=== PATIENT | female | born 1965 | race American Indian/Alaskan Native ===

== ENCOUNTER 2018-12-22 18:30 | Inpatient (IN) | payer OTHER ==
--- NOTE | 2018-12-22 19:30 | Event Note ---
ED Screening Note ED Screening Note: states her BP is elevated states that her medication was changed by her PCP from norvasc 5 mg once a day to metoprolol 50 mg on 12/19/18 states she has been light-headed no N/V no CP states she has a cough with clear mucus states she was given claritin by her PCP denies SOB denies any hx of asthma denies smoking This initial assessment/diagnostic orders/clinical plan/treatment(s) is/are subject to change based on patients health status, clinical progression and re- assessment by fellow clinical providers in the ED. Further treatment and workup at subsequent clinical providers discretion. Patient/guardian urged not to elope from the ED as their condition may be serious if not clinically assessed and managed. Initial orders include: CXR, labs, EKG SENT TO MAIN oxygen sat 89%, very poor air movement
[2018-12-22] MEDS ORDERED: ATROVENT IH ONE (19:35)
[2018-12-22] MEDS ORDERED: PROVENTIL IH ONE (19:35)
[2018-12-22 20:03] LABS: Basophils % (Auto) 0.6 % (0.0-1.8); Eosinophils % (Auto) 0.9 % (0.0-4.3); Hematocrit 44.9 % (30.3-42.9); Hemoglobin 14.9 gm/dl (10.1-14.3); Lymphocytes # (Auto) 0.9 K/mm3 (1.2-5.4); Lymphocytes % (Auto) 17.5 % (13.4-35.0); Mean Corpuscular HGB Conc 33 % (30-34); Mean Corpuscular Volume 89 fl (79-97); Monocytes # (Auto) 0.6 K/mm3 (0.0-0.8); Platelet Count 268 K/mm3 (140-440); Red Blood Count 5.06 M/mm3 (3.65-5.03); Red Cell Distribution Width 14.3 % (13.2-15.2)
[2018-12-22 20:09] LABS: INR 1.05 (0.87-1.13); Partial Thromboplastin Time 27.6 Sec. (24.2-36.6)
[2018-12-22 20:23] LABS: Alanine Aminotransferase 60 units/L (7-56); Albumin 3.4 g/dL (3.9-5); BUN/Creatinine Ratio 12; Blood Urea Nitrogen 6 mg/dL (7-17); Hemolysis Index 9
--- NOTE | 2018-12-22 20:39 | Emergency Department Report ---
ED General Adult HPI - General Chief complaint: Upper Respiratory Infection Stated complaint: DRY COUGH Time Seen by Provider: 12/22/18 19:26 Source: patient Mode of arrival: Ambulatory Limitations: No Limitations - History of Present Illness Initial comments: 53-year-old female with history of hypertension presents to ED with complaint of productive cough with yellow sputum, elevated blood pressure, feeling dizzy. Patient states symptoms began when week ago, when she noticed that her blood pressure was elevated despite being compliant with her Norvasc and HCTZ. Patient visited her PCP, and was switched from Norvasc to metoprolol plus her HCTZ. Patient states blood pressure remained elevated, so she decided to come to the emergency room. She states she still has productive cough, was diagnosed with pneumonia 1 year ago. Patient denies fever, chest pain, shortness of breath. Denies leg pain or swelling. -: week(s) (1) Severity scale (0 -10): 2 Consistency: constant Improves with: none Worsens with: none Associated Symptoms: cough, weakness. denies: chest pain, fever/chills, headaches, nausea/vomiting, shortness of breath - Related Data Home Medications Medication Instructions Recorded Confirmed Last Taken Metoprolol [Lopressor TAB] 50 mg PO BID 12/22/18 12/22/18 Unknown hydroCHLOROthiazide [HCTZ] 25 mg PO DAILY 12/22/18 12/22/18 Unknown Allergies Allergy/AdvReac Type Severity Reaction Status Date / Time acetaminophen [From Vicodin] AdvReac Nausea Verified 12/22/18 18:31 hydrocodone [From Vicodin] AdvReac Nausea Verified 12/22/18 18:31 ED Review of Systems ROS: Stated complaint: DRY COUGH Other details as noted in HPI Comment: All other systems reviewed and negative Constitutional: denies: chills, fever Respiratory: cough. denies: shortness of breath Cardiovascular: denies: chest pain Gastrointestinal: denies: nausea, vomiting Musculoskeletal: other (denies leg pain or swelling) ED Past Medical Hx - Past Medical History Hx Hypertension: Yes - Surgical History Past Surgical History?: No - Social History Smoking Status: Never Smoker Substance Use Type: None - Medications Home Medications: Home Medications Medication Instructions Recorded Confirmed Last Taken Type Metoprolol [Lopressor TAB] 50 mg PO BID 12/22/18 12/22/18 Unknown History hydroCHLOROthiazide [HCTZ] 25 mg PO DAILY 12/22/18 12/22/18 Unknown History ED Physical Exam - General Limitations: No Limitations General appearance: alert, in no apparent distress, obese - Head Head exam: Present: atraumatic, normocephalic - Eye Eye exam: Present: normal appearance - ENT ENT exam: Present: mucous membranes moist - Neck Neck exam: Present: normal inspection - Respiratory Respiratory exam: Present: normal lung sounds bilaterally. Absent: respiratory distress - Cardiovascular Cardiovascular Exam: Present: regular rate, normal rhythm - GI/Abdominal GI/Abdominal exam: Present: soft. Absent: distended, tenderness - Extremities Exam Extremities exam: Absent: pedal edema, calf tenderness - Neurological Exam Neurological exam: Present: alert, oriented X3 - Psychiatric Psychiatric exam: Present: normal affect, normal mood - Skin Skin exam: Present: warm, dry, intact, normal color ED Course Vital Signs 12/22/18 12/22/18 12/22/18 19:27 20:35 20:50 Temperature 98.5 F Pulse Rate 97 H Pulse Rate [ 88 90 Bilateral] Respiratory 20 Rate Respiratory 18 18 Rate [Bilateral ] Blood Pressure 174/110 Blood Pressure 174/110 [Right] O2 Sat by Pulse 86 Oximetry 12/22/18 22:05 Temperature Pulse Rate 94 H Pulse Rate [ Bilateral] Respiratory Rate Respiratory Rate [Bilateral ] Blood Pressure 172/112 Blood Pressure [Right] O2 Sat by Pulse Oximetry ED Medical Decision Making - Lab Data Result diagrams: 12/22/18 19:45 12/22/18 19:45 - EKG Data -: EKG Interpreted by Ga EKG shows normal: sinus rhythm, axis, intervals, QRS complexes, ST-T waves Rate: normal - EKG Data Interpretation: no acute changes - Radiology Data Radiology results: report reviewed, image reviewed - Medical Decision Making 53 yo F w/ HTN presents with elevated BP and hypoxia, room air sats 86%. Reports productive cough. Currently afebrile, WBCs normal. EKG and troponin normal. CXR shows bilateral interstitial infiltrates, probable edema. BNP normal, however, lasix given due to CXR findings. Pt also covered with antibiotics for possible infectious etiology. Albuterol, atrovent nebs given. Will admit to hospitalist for further evaluation. - Differential Diagnosis pneumonia, CHF, PE Critical Care Time: Yes Critical care time in (mins) excluding proc time.: 35 Critical care attestation.: If time is entered above; I have spent that time in minutes in the direct care of this critically ill patient, excluding procedure time. Critical Care Time: 35 minutes ED Disposition Clinical Impression: Hypoxia, Pulmonary edema, Hyponatremia Disposition: OP ADMIT IP TO THIS HOSP Is pt being admited?: Yes Condition: Stable Time of Disposition: 21:30
--- NOTE | 2018-12-22 21:04 | XRay Report ---
CHEST 2 VIEWS INDICATION / CLINICAL INFORMATION: Chest Pain. COMPARISON: None available. FINDINGS: SUPPORT DEVICES: None. HEART / MEDIASTINUM: No significant abnormality. LUNGS / PLEURA: Prominent interstitial edema type change noted bilaterally. No significant pleural ef fusion. Low lung volumes. Signer Name: Jase Lance MD Signed: 12/22/2018 8:59 PM Workstation Name: [id number]
[2018-12-22] MEDS ORDERED: LASIX IV ONE (21:31)
[2018-12-22] MEDS ORDERED: LEVAQUIN PO ONE (21:37)
[2018-12-22] MEDS ORDERED: APRESOLINE IV ONE (21:39)
--- NOTE | 2018-12-22 22:27 | History and Physical Report ---
History of Present Illness Chief complaint: I cant breathe, My blood pressure is high History of present illness: 53 YO Female with HTN, Obesity Hypoventilation Syndrome presents to ED for evaluation. Pt states that she has experienced shortness of breath, productive cough of yellow sputum over the past 1 week with persistent symptoms over the same time frame. Pt also reports elevated blood pressure. Pt seen and evaluated by her PCP on Wednesday and treated with outpatient therapy but has not experienced improvement in symptoms. Pt transported to [facility] via private vehicle. Pt seen and evaluated in ED and found to have Bronchitis, as well as Acute Respiratory Failure with pulse oximetry of 89% on room air. Pt also faoud to have elevated Gamma Gap suspicious for Multiple Myeloma. Pt treated with supportive care, rivera pplemental oxygen and admitted to medical floor. Pt denies fever, chills, palpitations, CP, Syncope, hemoptysis, unilateral leg swelling, calf pain, prolonged travel/immoblity, individual/family history of DVT/PE/Bleeding/Blood Clotting Disorders. No prior admission for review. All listed medication reconciled at time of admission. Past History Past Medical History: hypertension, other (Obesity Hypoventilation) Past Surgical History: No surgical history, Other (reviewed) Social history: single. denies: smoking, alcohol abuse, prescription drug abuse Family history: hypertension Medications and Allergies Allergies Allergy/AdvReac Type Severity Reaction Status Date / Time acetaminophen [From Vicodin] AdvReac Nausea Verified 12/22/18 18:31 hydrocodone [From Vicodin] AdvReac Nausea Verified 12/22/18 18:31 Home Medications Medication Instructions Recorded Confirmed Last Taken Type Metoprolol [Lopressor TAB] 50 mg PO BID 12/22/18 12/22/18 Unknown History hydroCHLOROthiazide [HCTZ] 25 mg PO DAILY 12/22/18 12/22/18 Unknown History Review of Systems Constitutional: no weight loss, no weight gain, no fever, no chills Ears, nose, mouth and throat: no ear pain, no decreased hearing, no nose pain, no nasal congestion, no nasal discharge, no sinus pressure Breasts: no change in shape, no swelling, no mass Cardiovascular: no chest pain, no orthopnea, no palpitations, no syncope Respiratory: cough, cough with sputum, excessive sputum, shortness of breath Gastrointestinal: no abdominal pain, no nausea, no vomiting, no diarrhea, no constipation, no change in bowel habits Genitourinary Female: no pelvic pain, no flank pain, no menorrhagia, no dysuria, no urinary frequency Rectal: no pain, no incontinence, no bleeding Musculoskeletal: no neck stiffness, no neck pain, no shooting arm pain, no arm numbness/tingling, no low back pain Integumentary: no rash, no pruritis, no redness, no sores, no wounds Neurological: no transient paralysis, no paralysis, no weakness, no parathesias, no numbness, no tingling Psychiatric: no anxiety, no memory loss, no change in sleep habits, no sleep disturbances, no insomnia, no hypersomnia, no change in appetite Endocrine: no cold intolerance, no heat intolerance, no polyphagia, no excessive thirst, no polydipsia, no polyuria Hematologic/Lymphatic: no easy bruising, no easy bleeding, no lymphadenopathy, no lymphedema Allergic/Immunologic: no urticaria, no allergic rhinitis, no wheezing, no persistent infections, no anaphylaxis Exam - Constitutional Vitals: Temp Pulse Resp BP Pulse Ox 98.5 F 94 H 18 172/112 86 12/22/18 19:27 12/22/18 22:05 12/22/18 20:50 12/22/18 22:05 12/22/18 19:27 General appearance: Present: mild distress, obese - EENT Eyes: Present: PERRL ENT: hearing intact, clear oral mucosa - Neck Neck: Present: supple, normal ROM - Respiratory Respiratory effort: normal Respiratory: bilateral: diminished, rhonchi - Cardiovascular Heart Sounds: Present: S1 & S2. Absent: rub, click - Extremities Extremities: pulses symmetrical, No edema Peripheral Pulses: within normal limits - Abdominal General gastrointestinal: Present: soft, non-tender, non-distended, normal bowel sounds Female genitourinary: Present: normal - Integumentary Integumentary: Present: clear, warm, dry - Musculoskeletal Musculoskeletal: gait normal, strength equal bilaterally - Psychiatric Psychiatric: appropriate mood/affect, intact judgment & insight - Neurologic Neurologic: CNII-XII intact, moves all extremities Results - Labs CBC & Chem 7: 12/22/18 19:45 12/22/18 19:45 Labs: Abnormal lab results 12/22/18 12/22/18 Range/Units 19:45 19:45 RBC 5.06 H (3.65-5.03) M/mm3 Hgb 14.9 H (10.1-14.3) gm/dl Hct 44.9 H (30.3-42.9) % [place] % (Auto) 11.0 H (0.0-7.3) % Lymph # 0.9 L (1.2-5.4) K/mm3 Sodium 126 L (137-145) mmol/L Chloride 80.2 L (98-107) mmol/L Carbon Dioxide 38 H (22-30) mmol/L BUN 6 L (7-17) mg/dL Creatinine 0.5 L (0.7-1.2) mg/dL Glucose 110 H (65-100) mg/dL ALT 60 H (7-56) units/L Total Protein 8.3 H (6.3-8.2) g/dL Albumin 3.4 L (3.9-5) g/dL Assessment and Plan - Patient Problems (1) Bronchitis Current Visit: Yes Status: Acute Plan to address problem: IV antibiotic therapy, IV steroid therapy, supplemental oxygen, chest x ray. (2) Respiratory failure Current Visit: Yes Status: Acute Qualifiers: Chronicity: acute Respiratory failure complication: hypoxia Qualified Code(s): J96.01 - Acute respiratory failure with hypoxia Plan to address problem: Supplemental oxygen, nebulizer therapy, pulse oximetry, NIPPV as clinically indicated, D dimer, (3) Hyponatremia syndrome Current Visit: Yes Status: Acute Plan to address problem: IVF resuscitation therapy, repeat bmp in am. (4) Multiple myeloma Current Visit: Yes Status: Suspected Plan to address problem: [place], LDH, B2 Microglobulin, SPEP, UPEP, (5) Obesity hypoventilation syndrome Current Visit: Yes Status: Acute Plan to address problem: Supplemental oxygen, nebulizer therapy, NIPPV as clinically indicated, outpatient sleep study, balanced diet, increased physical activity at discharge, +15 min dietary counseling. (6) DVT prophylaxis Current Visit: Yes Status: Acute Plan to address problem: SCD to BLE while in bed, Pt ambulatory
[2018-12-22] MEDS ORDERED: ZOFRAN IV PRN (22:33)
[2018-12-22] MEDS ORDERED: TYLENOL PO PRN (22:33)
[2018-12-22] MEDS ORDERED: SODIUM CHLORIDE FLUSH SYRINGE 10 ML IV PRN (22:33)
[2018-12-22] MEDS: SOLU-Medrol IV SCH (23:26)
[2018-12-23 05:34] LABS: Hematocrit 47.2 % (30.3-42.9); Hemoglobin 15.5 gm/dl (10.1-14.3); Mean Corpuscular HGB Conc 33 % (30-34); Mean Corpuscular Volume 90 fl (79-97); Platelet Count 289 K/mm3 (140-440); Red Blood Count 5.27 M/mm3 (3.65-5.03)
[2018-12-23 05:58] LABS: BUN/Creatinine Ratio 12; Blood Urea Nitrogen 7 mg/dL (7-17); Calcium 9.1 mg/dL (8.4-10.2); Hemolysis Index 4
[2018-12-23 09:17] LABS: Band Neutrophils # (Manual) 0.1 K/mm3; Basophils % (Manual) 0 % (0.0-1.8); Eosinophils % (Manual) 0 % (0.0-4.3); Total Cells Counted 100
[2018-12-23 09:18] LABS: Large Platelets 1+; Platelet Estimate Consistent w Auto; RBC Morphology Normal
[2018-12-23] MEDS: PROVENTIL IH PRN (09:33)
[2018-12-23] MEDS: LOPRESSOR PO SCH ×2 (10:42→22:49)
[2018-12-23] MEDS: HCTZ PO SCH (10:42)
[2018-12-23] MEDS: SOLU-Medrol IV SCH ×2 (10:43→22:46)
[2018-12-23] MEDS: SODIUM CHLORIDE FLUSH SYRINGE 10 ML IV SCH ×2 (10:43→22:49)
[2018-12-23] MEDS: ZITHROMAX 500 MG in NACL 0.9% 250ML 250 ML IV SCH (11:32)
--- NOTE | 2018-12-23 14:13 | Progress Note ---
Assessment and Plan Assessment and plan: 53 YO Female with HTN, Obesity Hypoventilation Syndrome presents to ED for evaluation. Pt states that she has experienced shortness of breath, productive cough of yellow sputum over the past 1 week with persistent symptoms over the same time frame. Pt also reports elevated blood pressure. Pt seen and evaluated by her PCP on Wednesday and treated with outpatient therapy but has not experienced improvement in symptoms. Pt transported to [facility] via private vehicle. Pt seen and evaluated in ED and found to have Bronchitis, as well as Acute Respiratory Failure with pulse oximetry of 89% on room air. Pt also faoud to have elevated Gamma Gap suspicious for Multiple Myeloma. Pt treated with supportive care, rivera pplemental oxygen and admitted to medical floor. Pt denies fever, chills, palpitations, CP, Syncope, hemoptysis, unilateral leg swelling, calf pain, prolonged travel/immoblity, individual/family history of DVT/PE/Bleeding/Blood Clotting Disorders. No prior admission for review. (1) Bronchitis Current Visit: Yes Status: Acute Plan to address problem: IV antibiotic therapy, IV steroid therapy, supplemental oxygen, chest x ray. Check ABG (2) Respiratory failure/Pulmonary edema Current Visit: Yes Status: Acute Qualifiers: Chronicity: acute Respiratory failure complication: hypoxia Qualified Code(s): J96.01 - Acute respiratory failure with hypoxia Plan to address problem: Supplemental oxygen, nebulizer therapy, pulse oximetry, NIPPV as clinically indicated, D dimer, Pulmonary consult wean 02 Give a dose of Lasix (3) Hyponatremia syndrome Current Visit: Yes Status: Acute Plan to address problem: IVF resuscitation therapy, repeat bmp in am. (4) Multiple myeloma Current Visit: Yes Status: Suspected Plan to address problem: [place], LDH, B2 Microglobulin, SPEP, UPEP, (5) Obesity hypoventilation syndrome Current Visit: Yes Status: Acute Plan to address problem: Supplemental oxygen, nebulizer therapy, NIPPV as clinically indicated, outpatient sleep study, balanced diet, increased physical activity at discharge, +15 min dietary counseling. Outpatient ARRON study recommended (6)? ELEVATED LDH, LOW NA, ELEVATED GAMMA Further outpatient work up recommended DVT prophylaxis Current Visit: Yes Status: Acute Plan to address problem: SCD to BLE while in bed, Pt ambulatory History Interval history: Patient seen and examined, reports shortness of breath, cough, No prior hx of smoking. Hospitalist Physical - Physical exam Narrative exam: VITAL SIGNS: Reviewed. GENERAL: The patient appeared normally developed, Morbidly obese Vital signs as documented. HEAD: No signs of head trauma. EYES: Pupils are equal. Extraocular motions intact. EARS: Hearing grossly intact. MOUTH: Oropharynx is normal. NECK: No adenopathy, no JVD. CHEST: Chest with diminished breath sounds bilaterally. No wheezes, rales, or rhonchi. CARDIAC: Regular rate and rhythm. S1 and S2, without murmurs, gallops, or rub s. VASCULAR: No Edema. Peripheral pulses normal and equal in all extremities. ABDOMEN: Soft, non tender and non distended. No rebound or guarding, and no masses palpated. Bowel Sounds normal. MUSCULOSKELETAL: Good range of motion of all major joints. Extremities without clubbing, cyanosis or edema. NEUROLOGIC EXAM: Alert and oriented x 3 No focal sensory or strength deficits. Speech normal. Follows commands. PSYCHIATRIC: Mood normal. SKIN: detial exam as documented in skin assessment - Constitutional Vitals: Temp Pulse Resp BP Pulse Ox 97.8 F 83 24 135/84 96 12/23/18 11:46 12/23/18 11:46 12/23/18 11:46 12/23/18 11:46 12/23/18 11:46 General appearance: Present: mild distress, obese Results - Labs CBC & Chem 7: 12/24/18 04:01 12/24/18 04:01 Labs: Laboratory Last Values WBC 7.1 K/mm3 (4.5-11.0) 12/23/18 05:00 RBC 5.27 M/mm3 (3.65-5.03) H 12/23/18 05:00 Hgb 15.5 gm/dl (10.1-14.3) H 12/23/18 05:00 Hct 47.2 % (30.3-42.9) H 12/23/18 05:00 MCV 90 fl (79-97) 12/23/18 05:00 MCH 30 pg (28-32) 12/23/18 05:00 MCHC 33 % (30-34) 12/23/18 05:00 RDW 14.0 % (13.2-15.2) 12/23/18 05:00 Plt Count 289 K/mm3 (140-440) 12/23/18 05:00 Lymph % (Auto) 17.5 % (13.4-35.0) 12/22/18 19:45 [place] % (Auto) 11.0 % (0.0-7.3) H 12/22/18 19:45 Eos % (Auto) 0.9 % (0.0-4.3) 12/22/18 19:45 Baso % (Auto) 0.6 % (0.0-1.8) 12/22/18 19:45 Lymph # 0.9 K/mm3 (1.2-5.4) L 12/22/18 19:45 [place] # 0.6 K/mm3 (0.0-0.8) 12/22/18 19:45 Eos # 0.0 K/mm3 (0.0-0.4) 12/22/18 19:45 Baso # 0.0 K/mm3 (0.0-0.1) 12/22/18 19:45 Add Manual Diff Complete 12/23/18 05:00 Total Counted 100 12/23/18 05:00 Seg Neutrophils % Radio Television Announcer 12/23/18 05:00 Seg Neuts % (Manual) 94.0 % (40.0-70.0) H 12/23/18 05:00 2.0 % 12/23/18 05:00 3.0 % (13.4-35.0) L 12/23/18 05:00 Reactive Lymphs % (Man) 0 % 12/23/18 05:00 1.0 % (0.0-7.3) 12/23/18 05:00 0 % (0.0-4.3) 12/23/18 05:00 0 % (0.0-1.8) 12/23/18 05:00 0 % 12/23/18 05:00 0 % 12/23/18 05:00 0 % 12/23/18 05:00 0 % 12/23/18 05:00 Nucleated RBC % Not Reportable 12/23/18 05:00 Seg Neutrophils # 3.6 K/mm3 (1.8-7.7) 12/22/18 19:45 Seg Neutrophils # Man 6.7 K/mm3 (1.8-7.7) 12/23/18 05:00 Band Neutrophils # 0.1 K/mm3 12/23/18 05:00 0.2 K/mm3 (1.2-5.4) L 12/23/18 05:00 Abs React Lymphs (Man) 0.0 K/mm3 12/23/18 05:00 0.1 K/mm3 (0.0-0.8) 12/23/18 05:00 0.0 K/mm3 (0.0-0.4) 12/23/18 05:00 0.0 K/mm3 (0.0-0.1) 12/23/18 05:00 0.0 K/mm3 12/23/18 05:00 0.0 K/mm3 12/23/18 05:00 0.0 K/mm3 12/23/18 05:00 Blast Cells # 0.0 K/mm3 12/23/18 05:00 WBC Morphology Not Reportable 12/23/18 05:00 Hypersegmented Neuts Not Reportable 12/23/18 05:00 Hyposegmented Neuts Not Reportable 12/23/18 05:00 Hypogranular Neuts Not Reportable 12/23/18 05:00 Not Reportable 12/23/18 05:00 Not Reportable 12/23/18 05:00 Not Reportable 12/23/18 05:00 Not Reportable 12/23/18 05:00 Not Reportable 12/23/18 05:00 Not Reportable 12/23/18 05:00 Consistent w auto 12/23/18 05:00 Not Reportable 12/23/18 05:00 Plt Clumps, EDTA Not Reportable 12/23/18 05:00 1+ 12/23/18 05:00 Not Reportable 12/23/18 05:00 Not Reportable 12/23/18 05:00 Plt Morphology Comment Not Reportable 12/23/18 05:00 RBC Morphology Normal 12/23/18 05:00 Dimorphic RBCs Not Reportable 12/23/18 05:00 Not Reportable 12/23/18 05:00 Not Reportable 12/23/18 05:00 Not Reportable 12/23/18 05:00 Not Reportable 12/23/18 05:00 Not Reportable 12/23/18 05:00 Not Reportable 12/23/18 05:00 Not Reportable 12/23/18 05:00 Not Reportable 12/23/18 05:00 Not Reportable 12/23/18 05:00 Not Reportable 12/23/18 05:00 Not Reportable 12/23/18 05:00 Not Reportable 12/23/18 05:00 Not Reportable 12/23/18 05:00 Not Reportable 12/23/18 05:00 Not Reportable 12/23/18 05:00 Not Reportable 12/23/18 05:00 Not Reportable 12/23/18 05:00 Not Reportable 12/23/18 05:00 Not Reportable 12/23/18 05:00 Acanthocytes (Spur) Not Reportable 12/23/18 05:00 Rouleaux Not Reportable 12/23/18 05:00 Not Reportable 12/23/18 05:00 Not Reportable 12/23/18 05:00 Not Reportable 12/23/18 05:00 Not Reportable 12/23/18 05:00 Hem Pathologist Commnt No 12/23/18 05:00 PT 13.4 Sec. (12.2-14.9) 12/22/18 19:45 INR 1.05 (0.87-1.13) 12/22/18 19:45 APTT 27.6 Sec. (24.2-36.6) 12/22/18 19:45 177.85 ng/mlDDU (0-234) 12/22/18 19:45 Sodium 129 mmol/L (137-145) L 12/23/18 05:00 Potassium 3.6 mmol/L (3.6-5.0) 12/23/18 05:00 Chloride 80.8 mmol/L (98-107) L 12/23/18 05:00 Carbon Dioxide 37 mmol/L (22-30) H 12/23/18 05:00 15 mmol/L 12/23/18 05:00 BUN 7 mg/dL (7-17) 12/23/18 05:00 0.6 mg/dL (0.7-1.2) L 12/23/18 05:00 Estimated GFR > 60 ml/min 12/23/18 05:00 12 % 12/23/18 05:00 Glucose 148 mg/dL (65-100) H 12/23/18 05:00 Calcium 9.1 mg/dL (8.4-10.2) 12/23/18 05:00 1.00 mg/dL (0.1-1.2) 12/22/18 19:45 AST 32 units/L (5-40) 12/22/18 19:45 ALT 60 units/L (7-56) H 12/22/18 19:45 91 units/L (35-129) 12/22/18 19:45 230 units/L (91-180) H 12/22/18 22:47 < 0.010 ng/mL (0.00-0.029) 12/22/18 22:27 NT-Pro-B Natriuret Pep 164.4 pg/mL (0-900) 12/22/18 19:45 8.3 g/dL (6.3-8.2) H 12/22/18 19:45 3.4 g/dL (3.9-5) L 12/22/18 19:45 0.7 % 12/22/18 19:45 Active Medications - Current Medications Current Medications: Generic Name Dose Route Start Last Admin Trade Name Freq PRN Reason Stop Dose Admin Acetaminophen 650 mg 12/22/18 22:33 Tylenol PO Q4H PRN Pain MILD(1-3)/Fever >100.5/[place] Albuterol 2.5 mg 12/22/18 22:33 12/23/18 09:33 Proventil IH 2.5 mg Q4HRT PRN Administration Shortness Of Breath Hydrochlorothiazide 25 mg 12/23/18 10:00 12/23/18 10:42 Hctz PO 25 mg DAILY MAURICIO Administration Azithromycin 500 mg/ Sodium 250 mls @ 250 mls/hr 12/23/18 10:00 12/23/18 11:32 Chloride IV 250 mls/hr Q24HR MAURICIO Administration Protocol Methylprednisolone Sodium Succinate 40 mg 12/22/18 22:35 12/23/18 10:43 Solu-Medrol IV 40 mg Q12HR MAURICIO Administration Metoprolol Tartrate 50 mg 12/23/18 10:00 12/23/18 10:42 Lopressor PO 50 mg BID MAURICIO Administration Ondansetron HCl 4 mg 12/22/18 22:33 Zofran IV Q8H PRN Nausea And Vomiting Sodium Chloride 10 ml 12/23/18 10:00 12/23/18 10:43 Sodium Chloride Flush Syringe 10 Ml IV 10 ml BID MAURICIO Administration Sodium Chloride 10 ml 12/22/18 22:33 Sodium Chloride Flush Syringe 10 Ml IV PRN PRN LINE FLUSH
[2018-12-23] MEDS ORDERED: LASIX IV ONE (15:00)
[2018-12-23] MEDS ORDERED: ATIVAN IV PRN (17:43)
--- NOTE | 2018-12-23 18:15 | Event Note ---
Date: 12/23/18 Pt ABG results reviewed. Obesity Hypoventilation with CO2 retention.. Will continue NIPPV. Pt stable, AOx3, without neurologic changes. Discussed ABG with Respiratory therapy as well as nurse. Discussed care plan with staff nurse.
[2018-12-24 04:35] LABS: Hematocrit 44.8 % (30.3-42.9); Hemoglobin 14.6 gm/dl (10.1-14.3); Mean Corpuscular HGB Conc 33 % (30-34); Mean Corpuscular Volume 90 fl (79-97); Platelet Count 275 K/mm3 (140-440); Red Blood Count 4.98 M/mm3 (3.65-5.03); Red Cell Distribution Width 14.2 % (13.2-15.2)
[2018-12-24 04:50] LABS: BUN/Creatinine Ratio 28; Blood Urea Nitrogen 17 mg/dL (7-17); Hemolysis Index 5
[2018-12-24] MEDS: PROVENTIL IH PRN (09:45)
[2018-12-24] MEDS: ZITHROMAX 500 MG in NACL 0.9% 250ML 250 ML IV SCH (10:00)
[2018-12-24] MEDS: LOPRESSOR PO SCH ×2 (11:08→21:05)
[2018-12-24] MEDS: SOLU-Medrol IV SCH ×2 (11:09→21:06)
[2018-12-24] MEDS: HCTZ PO SCH (11:09)
[2018-12-24] MEDS: SODIUM CHLORIDE FLUSH SYRINGE 10 ML IV SCH ×2 (11:09→21:06)
--- NOTE | 2018-12-24 13:03 | Progress Note ---
Assessment and Plan Assessment and plan: 53 YO Female with HTN, Obesity Hypoventilation Syndrome presents to ED for evaluation. Pt states that she has experienced shortness of breath, productive cough of yellow sputum over the past 1 week with persistent symptoms over the same time frame. Pt also reports elevated blood pressure. Pt seen and evaluated by her PCP on Wednesday and treated with outpatient therapy but has not experienced improvement in symptoms. Pt transported to [facility] via private vehicle. Pt seen and evaluated in ED and found to have Bronchitis, as well as Acute Respiratory Failure with pulse oximetry of 89% on room air. Pt also faoud to have elevated Gamma Gap suspicious for Multiple Myeloma. Pt treated with supportive care, rivera pplemental oxygen and admitted to medical floor. Pt denies fever, chills, palpitations, CP, Syncope, hemoptysis, unilateral leg swelling, calf pain, prolonged travel/immoblity, individual/family history of DVT/PE/Bleeding/Blood Clotting Disorders. No prior admission for review. (1) Bronchitis Current Visit: Yes Status: Acute Plan to address problem: IV antibiotic therapy, IV steroid therapy, supplemental oxygen, chest x ray. Check ABG (2) Respiratory failure/Pulmonary edema/Hypercapenia Current Visit: Yes Status: Acute Qualifiers: Chronicity: acute Respiratory failure complication: hypoxia Qualified Code(s): J96.01 - Acute respiratory failure with hypoxia Plan to address problem: Supplemental oxygen, nebulizer therapy, pulse oximetry, NIPPV as clinically indicated, D dimer, Pulmonary consult ABG noted, patient improved with BIPAP wean 02 Given a dose of Lasix yesterday (3) Hyponatremia syndrome Current Visit: Yes Status: Acute Plan to address problem: Improving some IVF resuscitation therapy, repeat bmp in am. (4) Multiple myeloma Current Visit: Yes Status: Suspected Plan to address problem: [place], LDH, B2 Microglobulin, SPEP, UPEP, (5) Obesity hypoventilation syndrome Current Visit: Yes Status: Acute Plan to address problem: Supplemental oxygen, nebulizer therapy, NIPPV as clinically indicated, outpatient sleep study, balanced diet, increased physical activity at discharge, +15 min dietary counseling. Outpatient ARRON study recommended (6)? ELEVATED LDH, LOW NA, ELEVATED GAMMA Further outpatient work up recommended DVT prophylaxis Current Visit: Yes Status: Acute Plan to address problem: SCD to BLE while in bed, Pt ambulatory History Interval history: Patient seen and examined, reports shortness of breath, cough. REPORTS IMPROVEMENT Hospitalist Physical - Physical exam Narrative exam: VITAL SIGNS: Reviewed. GENERAL: The patient appeared normally developed, Morbidly obese Vital signs as documented. HEAD: No signs of head trauma. EYES: Pupils are equal. Extraocular motions intact. EARS: Hearing grossly intact. MOUTH: Oropharynx is normal. NECK: No adenopathy, no JVD. CHEST: Chest with diminished breath sounds bilaterally. No wheezes, rales, or rhonchi. CARDIAC: Regular rate and rhythm. S1 and S2, without murmurs, gallops, or rubs. VASCULAR: No Edema. Peripheral pulses normal and equal in all extremities. ABDOMEN: Soft, non tender and non distended. No rebound or guarding, and no masses palpated. Bowel Sounds normal. MUSCULOSKELETAL: Good range of motion of all major joints. Extremities without clubbing, cyanosis or edema. NEUROLOGIC EXAM: Alert and oriented x 3 No focal sensory or strength deficits. Speech normal. Follows commands. PSYCHIATRIC: Mood normal. SKIN: detial exam as documented in skin assessment - Constitutional Vitals: Temp Pulse Resp BP Pulse Ox 97.7 F 90 20 131/79 97 12/24/18 06:27 12/24/18 11:08 12/24/18 09:55 12/24/18 11:08 12/24/18 09:51 General appearance: Present: mild distress, obese Results - Labs CBC & Chem 7: 12/24/18 04:01 12/24/18 04:01 Labs: Laboratory Last Values WBC 5.8 K/mm3 (4.5-11.0) 12/24/18 04:01 RBC 4.98 M/mm3 (3.65-5.03) 12/24/18 04:01 Hgb 14.6 gm/dl (10.1-14.3) H 12/24/18 04:01 Hct 44.8 % (30.3-42.9) H 12/24/18 04:01 MCV 90 fl (79-97) 12/24/18 04:01 MCH 29 pg (28-32) 12/24/18 04:01 MCHC 33 % (30-34) 12/24/18 04:01 RDW 14.2 % (13.2-15.2) 12/24/18 04:01 Plt Count 275 K/mm3 (140-440) 12/24/18 04:01 Lymph % (Auto) 17.5 % (13.4-35.0) 12/22/18 19:45 [place] % (Auto) 11.0 % (0.0-7.3) H 12/22/18 19:45 Eos % (Auto) 0.9 % (0.0-4.3) 12/22/18 19:45 Baso % (Auto) 0.6 % (0.0-1.8) 12/22/18 19:45 Lymph # 0.9 K/mm3 (1.2-5.4) L 12/22/18 19:45 [place] # 0.6 K/mm3 (0.0-0.8) 12/22/18 19:45 Eos # 0.0 K/mm3 (0.0-0.4) 12/22/18 19:45 Baso # 0.0 K/mm3 (0.0-0.1) 12/22/18 19:45 Add Manual Diff Complete 12/23/18 05:00 Total Counted 100 12/23/18 05:00 Seg Neutrophils % Outside Machinist 12/23/18 05:00 Seg Neuts % (Manual) 94.0 % (40.0-70.0) H 12/23/18 05:00 2.0 % 12/23/18 05:00 3.0 % (13.4-35.0) L 12/23/18 05:00 Reactive Lymphs % (Man) 0 % 12/23/18 05:00 1.0 % (0.0-7.3) 12/23/18 05:00 0 % (0.0-4.3) 12/23/18 05:00 0 % (0.0-1.8) 12/23/18 05:00 0 % 12/23/18 05:00 0 % 12/23/18 05:00 0 % 12/23/18 05:00 0 % 12/23/18 05:00 Nucleated RBC % Not Reportable 12/23/18 05:00 Seg Neutrophils # 3.6 K/mm3 (1.8-7.7) 12/22/18 19:45 Seg Neutrophils # Man 6.7 K/mm3 (1.8-7.7) 12/23/18 05:00 Band Neutrophils # 0.1 K/mm3 12/23/18 05:00 0.2 K/mm3 (1.2-5.4) L 12/23/18 05:00 Abs React Lymphs (Man) 0.0 K/mm3 12/23/18 05:00 0.1 K/mm3 (0.0-0.8) 12/23/18 05:00 0.0 K/mm3 (0.0-0.4) 12/23/18 05:00 0.0 K/mm3 (0.0-0.1) 12/23/18 05:00 0.0 K/mm3 12/23/18 05:00 0.0 K/mm3 12/23/18 05:00 0.0 K/mm3 12/23/18 05:00 Blast Cells # 0.0 K/mm3 12/23/18 05:00 WBC Morphology Not Reportable 12/23/18 05:00 Hypersegmented Neuts Not Reportable 12/23/18 05:00 Hyposegmented Neuts Not Reportable 12/23/18 05:00 Hypogranular Neuts Not Reportable 12/23/18 05:00 Not Reportable 12/23/18 05:00 Not Reportable 12/23/18 05:00 Not Reportable 12/23/18 05:00 Not Reportable 12/23/18 05:00 Not Reportable 12/23/18 05:00 Not Reportable 12/23/18 05:00 Consistent w auto 12/23/18 05:00 Not Reportable 12/23/18 05:00 Plt Clumps, EDTA Not Reportable 12/23/18 05:00 1+ 12/23/18 05:00 Not Reportable 12/23/18 05:00 Not Reportable 12/23/18 05:00 Plt Morphology Comment Not Reportable 12/23/18 05:00 RBC Morphology Normal 12/23/18 05:00 Dimorphic RBCs Not Reportable 12/23/18 05:00 Not Reportable 12/23/18 05:00 Not Reportable 12/23/18 05:00 Not Reportable 12/23/18 05:00 Not Reportable 12/23/18 05:00 Not Reportable 12/23/18 05:00 Not Reportable 12/23/18 05:00 Not Reportable 12/23/18 05:00 Not Reportable 12/23/18 05:00 Not Reportable 12/23/18 05:00 Not Reportable 12/23/18 05:00 Not Reportable 12/23/18 05:00 Not Reportable 12/23/18 05:00 Not Reportable 12/23/18 05:00 Not Reportable 12/23/18 05:00 Not Reportable 12/23/18 05:00 Not Reportable 12/23/18 05:00 Not Reportable 12/23/18 05:00 Not Reportable 12/23/18 05:00 Not Reportable 12/23/18 05:00 Acanthocytes (Spur) Not Reportable 12/23/18 05:00 Rouleaux Not Reportable 12/23/18 05:00 Not Reportable 12/23/18 05:00 Not Reportable 12/23/18 05:00 Not Reportable 12/23/18 05:00 Not Reportable 12/23/18 05:00 Hem Pathologist Commnt No 12/23/18 05:00 PT 13.4 Sec. (12.2-14.9) 12/22/18 19:45 INR 1.05 (0.87-1.13) 12/22/18 19:45 APTT 27.6 Sec. (24.2-36.6) 12/22/18 19:45 177.85 ng/mlDDU (0-234) 12/22/18 19:45 POC ABG pH 7.399 (7.35-7.45) 12/23/18 17:51 POC ABG pO2 62 (80-105) L 12/23/18 17:51 POC ABG HCO3 45.6 (22-26 mml/L) 12/23/18 17:51 POC ABG Total CO2 48 (23-27mmol/L) 12/23/18 17:51 POC ABG O2 Sat 90 12/23/18 17:51 POC ABG Base Excess 21 ((-2) - (+3)mmol/L) 12/23/18 17:51 30 % 12/23/18 17:51 Sodium 132 mmol/L (137-145) L 12/24/18 04:01 Potassium 4.3 mmol/L (3.6-5.0) 12/24/18 04:01 Chloride 85.3 mmol/L (98-107) L 12/24/18 04:01 Carbon Dioxide 40 mmol/L (22-30) H 12/24/18 04:01 11 mmol/L 12/24/18 04:01 BUN 17 mg/dL (7-17) 12/24/18 04:01 0.6 mg/dL (0.7-1.2) L 12/24/18 04:01 Estimated GFR > 60 ml/min 12/24/18 04:01 28 % 12/24/18 04:01 Glucose 129 mg/dL (65-100) H 12/24/18 04:01 Calcium 9.0 mg/dL (8.4-10.2) 12/24/18 04:01 1.00 mg/dL (0.1-1.2) 12/22/18 19:45 AST 32 units/L (5-40) 12/22/18 19:45 ALT 60 units/L (7-56) H 12/22/18 19:45 91 units/L (35-129) 12/22/18 19:45 230 units/L (91-180) H 12/22/18 22:47 < 0.010 ng/mL (0.00-0.029) 12/22/18 22:27 NT-Pro-B Natriuret Pep 164.4 pg/mL (0-900) 12/22/18 19:45 8.3 g/dL (6.3-8.2) H 12/22/18 19:45 3.4 g/dL (3.9-5) L 12/22/18 19:45 0.7 % 12/22/18 19:45 Active Medications - Current Medications Current Medications: Generic Name Dose Route Start Last Admin Trade Name Freq PRN Reason Stop Dose Admin Acetaminophen 650 mg 12/22/18 22:33 Tylenol PO Q4H PRN Pain MILD(1-3)/Fever >100.5/[place] Albuterol 2.5 mg 12/22/18 22:33 12/24/18 09:45 Proventil IH 2.5 mg Q4HRT PRN Administration Shortness Of Breath Hydrochlorothiazide 25 mg 12/23/18 10:00 12/24/18 11:09 Hctz PO 25 mg DAILY MAURICIO Administration Azithromycin 500 mg/ Sodium 250 mls @ 250 mls/hr 12/23/18 10:00 12/24/18 10:00 Chloride IV 12/27/18 10:59 250 mls/hr Q24HR MAURICIO Administration Protocol Lorazepam 0.5 mg 12/23/18 17:43 12/23/18 22:50 Ativan IV 0.5 mg ONCE PRN Administration Agitation Methylprednisolone Sodium Succinate 40 mg 12/22/18 22:35 12/24/18 11:09 Solu-Medrol IV 40 mg Q12HR MAURICIO Administration Metoprolol Tartrate 50 mg 12/23/18 10:00 12/24/18 11:08 Lopressor PO 50 mg BID MAURICIO Administration Ondansetron HCl 4 mg 12/22/18 22:33 Zofran IV Q8H PRN Nausea And Vomiting Sodium Chloride 10 ml 12/23/18 10:00 12/24/18 11:09 Sodium Chloride Flush Syringe 10 Ml IV 10 ml BID MAURICIO Administration Sodium Chloride 10 ml 12/22/18 22:33 Sodium Chloride Flush Syringe 10 Ml IV PRN PRN LINE FLUSH
--- NOTE | 2018-12-24 17:20 | Consultation ---
History of Present Illness Consult date: 12/24/18 Requesting physician: BRENNEN WINKLER Reason for consult: dyspnea History of present illness: Pt. admitted with several days of increased SOB, wheezing, cough, chest congestion, clear sputum. Has mild LE edema. No fevers, chills, chest pain, hemoptysis. Feels better since admit. Active Medications Acetaminophen (Tylenol) 650 mg PO Q4H PRN PRN Reason: Pain MILD(1-3)/Fever >100.5/[place] Albuterol (Proventil) 2.5 mg IH Q4HRT PRN PRN Reason: Shortness Of Breath Last Admin: 12/24/18 09:45 Dose: 2.5 mg Documented by: Hydrochlorothiazide (Hctz) 25 mg PO DAILY [facility] Last Admin: 12/24/18 11:09 Dose: 25 mg Documented by: Azithromycin 500 mg/ Sodium (Chloride) 250 mls @ 250 mls/hr IV Q24HR [facility]; Protocol Stop: 12/27/18 10:59 Last Admin: 12/24/18 10:00 Dose: 250 mls/hr Documented by: Lorazepam (Ativan) 0.5 mg IV ONCE PRN PRN Reason: Agitation Last Admin: 12/23/18 22:50 Dose: 0.5 mg Documented by: Methylprednisolone Sodium Succinate (Solu-Medrol) 40 mg IV Q12HR [facility] Last Admin: 12/24/18 11:09 Dose: 40 mg Documented by: Metoprolol Tartrate (Lopressor) 50 mg PO BID [facility] Last Admin: 12/24/18 11:08 Dose: 50 mg Documented by: Ondansetron HCl (Zofran) 4 mg IV Q8H PRN PRN Reason: Nausea And Vomiting Sodium Chloride (Sodium Chloride Flush Syringe 10 Ml) 10 ml IV BID [facility] Last Admin: 12/24/18 11:09 Dose: 10 ml Documented by: Sodium Chloride (Sodium Chloride Flush Syringe 10 Ml) 10 ml IV PRN PRN PRN Reason: LINE FLUSH Past History Past Medical History: hypertension, other (Obesity Hypoventilation) Past Surgical History: No surgical history, Other (reviewed) Social history: single. denies: smoking, alcohol abuse, prescription drug abuse Family history: hypertension Medications and Allergies Allergies Allergy/AdvReac Type Severity Reaction Status Date / Time acetaminophen [From Vicodin] AdvReac Nausea Verified 12/22/18 18:31 hydrocodone [From Vicodin] AdvReac Nausea Verified 12/22/18 18:31 Home Medications Medication Instructions Recorded Confirmed Last Taken Type Metoprolol [Lopressor TAB] 50 mg PO BID 12/22/18 12/22/18 Unknown History hydroCHLOROthiazide [HCTZ] 25 mg PO DAILY 12/22/18 12/22/18 Unknown History Active Meds: Active Medications Acetaminophen (Tylenol) 650 mg PO Q4H PRN PRN Reason: Pain MILD(1-3)/Fever >100.5/[place] Albuterol (Proventil) 2.5 mg IH Q4HRT PRN PRN Reason: Shortness Of Breath Last Admin: 12/24/18 09:45 Dose: 2.5 mg Documented by: Hydrochlorothiazide (Hctz) 25 mg PO DAILY [facility] Last Admin: 12/24/18 11:09 Dose: 25 mg Documented by: Azithromycin 500 mg/ Sodium (Chloride) 250 mls @ 250 mls/hr IV Q24HR [facility]; Protocol Stop: 12/27/18 10:59 Last Admin: 12/24/18 10:00 Dose: 250 mls/hr Documented by: Lorazepam (Ativan) 0.5 mg IV ONCE PRN PRN Reason: Agitation Last Admin: 12/23/18 22:50 Dose: 0.5 mg Documented by: Methylprednisolone Sodium Succinate (Solu-Medrol) 40 mg IV Q12HR [facility] Last Admin: 12/24/18 11:09 Dose: 40 mg Documented by: Metoprolol Tartrate (Lopressor) 50 mg PO BID [facility] Last Admin: 12/24/18 11:08 Dose: 50 mg Documented by: Ondansetron HCl (Zofran) 4 mg IV Q8H PRN PRN Reason: Nausea And Vomiting Sodium Chloride (Sodium Chloride Flush Syringe 10 Ml) 10 ml IV BID [facility] Last Admin: 12/24/18 11:09 Dose: 10 ml Documented by: Sodium Chloride (Sodium Chloride Flush Syringe 10 Ml) 10 ml IV PRN PRN PRN Reason: LINE FLUSH Review of Systems All systems: negative Physical Examination Vital signs: Vital Signs Temp Pulse Resp BP Pulse Ox 98.5 F 95 H 20 174/110 81 L 12/22/18 19:19 12/22/18 19:19 12/22/18 19:19 12/22/18 19:19 12/22/18 19:19 General appearance: no acute distress, alert, other (morbidly obese) Eyes: non-icteric ENT: oropharynx moist Neck: supple Effort: normal Ascultation: Bilateral: diminished breath sounds (2/2 obesity) Cardiovascular: regular rate and rhythm (no mrg) Gastrointestinal: normoactive bowel sounds, soft, non-tender, non-distended Integumentary: normal Extremities: no cyanosis, pink and warm, edema (1+ bilateral LE edema) Musculoskeletal: no deformities normal mental status, non-focal exam, pupils equal and round, CN II-XII normal mood appropriate, affect normal Results - Laboratory Findings CBC and BMP: 12/24/18 04:01 12/24/18 04:01 ABG POC ABG pH 7.399 (7.35-7.45) 12/23/18 17:51 POC ABG pO2 62 (80-105) L 12/23/18 17:51 POC ABG HCO3 45.6 (22-26 mml/L) 12/23/18 17:51 POC ABG Total CO2 48 (23-27mmol/L) 12/23/18 17:51 POC ABG O2 Sat 90 12/23/18 17:51 PT/INR, D-dimer PT 13.4 Sec. (12.2-14.9) 12/22/18 19:45 INR 1.05 (0.87-1.13) 12/22/18 19:45 177.85 ng/mlDDU (0-234) 12/22/18 19:45 Abnormal lab findings: Abnormal Labs 12/22/18 12/22/18 12/22/18 19:45 19:45 22:47 RBC 5.06 H Hgb 14.9 H Hct 44.9 H [place] % (Auto) 11.0 H Lymph # 0.9 L Seg Neuts % (Manual) Lymphocytes % (Manual) Lymphocytes # (Manual) POC ABG pO2 Sodium 126 L Chloride 80.2 L Carbon Dioxide 38 H BUN 6 L Creatinine 0.5 L Glucose 110 H ALT 60 H Lactate Dehydrogenase 230 H Total Protein 8.3 H Albumin 3.4 L 12/23/18 12/23/18 12/23/18 05:00 05:00 17:51 RBC 5.27 H Hgb 15.5 H Hct 47.2 H [place] % (Auto) Lymph # Seg Neuts % (Manual) 94.0 H Lymphocytes % (Manual) 3.0 L Lymphocytes # (Manual) 0.2 L POC ABG pO2 62 L Sodium 129 L Chloride 80.8 L Carbon Dioxide 37 H BUN Creatinine 0.6 L Glucose 148 H ALT Lactate Dehydrogenase Total Protein Albumin 12/24/18 12/24/18 04:01 04:01 RBC Hgb 14.6 H Hct 44.8 H [place] % (Auto) Lymph # Seg Neuts % (Manual) Lymphocytes % (Manual) Lymphocytes # (Manual) POC ABG pO2 Sodium 132 L Chloride 85.3 L Carbon Dioxide 40 H BUN Creatinine 0.6 L Glucose 129 H ALT Lactate Dehydrogenase Total Protein Albumin - Diagnostic Findings Chest x-ray: report reviewed, image reviewed (enlarged R pulm artery; interstitial prominence possibly edema) Assessment and Plan Imp: 1. OHS w/ probable ARRON 2. Morbid obesity 3. Acute bronchitis versus mild pulmonary edema 4. Acute respiratory failure, hypoxia 5. Chronic respiratory failure, hypercapnea 2/2 #1 6. Polycythemia, probably related to chronic hypoxia from untreated ARRON 7. R/o Pulm HTN Rec: 1. Cont. ABX x 5 days; cont. bronchodilators; probably can do brief course of PO steroids or even stop altogether 2. Weight loss 3. Avoid IVFs 4. BP control 5. Outpatient PSG; do not drive/operate machinery while sleepy 6. R pulmonary artery looks enlarged on CXR; would obtain Echo to further eval.; check BNP also; avoid IVFs if possible 7. Ambulatory Plan of care reviewed w/ patient, she understands/agrees Thanks kindly for the consult.
[2018-12-25] MEDS: HCTZ PO SCH (10:31)
[2018-12-25] MEDS: SOLU-Medrol IV SCH (10:31)
[2018-12-25] MEDS: LOPRESSOR PO SCH ×2 (10:32→22:28)
[2018-12-25] MEDS: SODIUM CHLORIDE FLUSH SYRINGE 10 ML IV SCH ×2 (10:35→22:41)
--- NOTE | 2018-12-25 13:01 | Progress Note ---
Assessment and Plan Assessment and plan: 53 YO Female with HTN, Obesity Hypoventilation Syndrome presents to ED for evaluation. Pt states that she has experienced shortness of breath, productive cough of yellow sputum over the past 1 week with persistent symptoms over the same time frame. Pt also reports elevated blood pressure. Pt seen and evaluated by her PCP on Wednesday and treated with outpatient therapy but has not experienced improvement in symptoms. Pt transported to [facility] via private vehicle. Pt seen and evaluated in ED and found to have Bronchitis, as well as Acute Respiratory Failure with pulse oximetry of 89% on room air. Pt also faoud to have elevated Gamma Gap suspicious for Multiple Myeloma. Pt treated with supportive care, rivera pplemental oxygen and admitted to medical floor. Pt denies fever, chills, palpitations, CP, Syncope, hemoptysis, unilateral leg swelling, calf pain, prolonged travel/immoblity, individual/family history of DVT/PE/Bleeding/Blood Clotting Disorders. No prior admission for review. (1) Bronchitis Current Visit: Yes Status: Acute Plan to address problem: IV antibiotic therapy, supplemental oxygen, chest x ray. Discontinued Steroid (2) Respiratory failure/Pulmonary edema/Hypercapenia Current Visit: Yes Status: Acute Qualifiers: Chronicity: acute Respiratory failure complication: hypoxia Qualified Code(s): J96.01 - Acute respiratory failure with hypoxia Plan to address problem: Supplemental oxygen, nebulizer therapy, pulse oximetry, NIPPV as clinically indicated, D dimer, Pulmonary consult ABG noted, patient improved with BIPAP wean 02 Given a dose of Lasix yesterday (3) Hyponatremia syndrome Current Visit: Yes Status: Acute Plan to address problem: Improving some IVF resuscitation therapy, repeat bmp in am. (4) Multiple myeloma Current Visit: Yes Status: Suspected Plan to address problem: [place], LDH, B2 Microglobulin, SPEP, UPEP, (5) Obesity hypoventilation syndrome Current Visit: Yes Status: Acute Plan to address problem: Supplemental oxygen, nebulizer therapy, NIPPV as clinically indicated, outpatient sleep study, balanced diet, increased physical activity at discharge, +15 min dietary counseling. Outpatient ARRON study recommended (6)? ELEVATED LDH, LOW NA, ELEVATED GAMMA Further outpatient work up recommended DVT prophylaxis Current Visit: Yes Status: Acute Plan to address problem: SCD to BLE while in bed, Pt ambulatory History Interval history: Patient seen and examined, reports shortness of breath, cough. REPORTS IMPROVEMENT Hospitalist Physical - Physical exam Narrative exam: VITAL SIGNS: Reviewed. GENERAL: The patient appeared normally developed, Morbidly obese Vital signs as documented. HEAD: No signs of head trauma. EYES: Pupils are equal. Extraocular motions intact. EARS: Hearing grossly intact. MOUTH: Oropharynx is normal. NECK: No adenopathy, no JVD. CHEST: Chest with diminished breath sounds bilaterally. No wheezes, rales, or rhonchi. CARDIAC: Regular rate and rhythm. S1 and S2, without murmurs, gallops, or rubs. VASCULAR: No Edema. Peripheral pulses normal and equal in all extremities. ABDOMEN: Soft, non tender and non distended. No rebound or guarding, and no masses palpated. Bowel Sounds normal. MUSCULOSKELETAL: Good range of motion of all major joints. Extremities without clubbing, cyanosis or edema. NEUROLOGIC EXAM: Alert and oriented x 3 No focal sensory or strength deficits. Speech normal. Follows commands. PSYCHIATRIC: Mood normal. SKIN: detial exam as documented in skin assessment - Constitutional Vitals: Temp Pulse Resp BP Pulse Ox 98.0 F 77 18 136/88 93 12/25/18 05:20 12/25/18 05:20 12/25/18 05:20 12/25/18 05:20 12/25/18 05:20 General appearance: Present: mild distress, obese Results - Labs CBC & Chem 7: 12/24/18 04:01 12/24/18 04:01 Labs: Laboratory Last Values WBC 5.8 K/mm3 (4.5-11.0) 12/24/18 04:01 RBC 4.98 M/mm3 (3.65-5.03) 12/24/18 04:01 Hgb 14.6 gm/dl (10.1-14.3) H 12/24/18 04:01 Hct 44.8 % (30.3-42.9) H 12/24/18 04:01 MCV 90 fl (79-97) 12/24/18 04:01 MCH 29 pg (28-32) 12/24/18 04:01 MCHC 33 % (30-34) 12/24/18 04:01 RDW 14.2 % (13.2-15.2) 12/24/18 04:01 Plt Count 275 K/mm3 (140-440) 12/24/18 04:01 Lymph % (Auto) 17.5 % (13.4-35.0) 12/22/18 19:45 [place] % (Auto) 11.0 % (0.0-7.3) H 12/22/18 19:45 Eos % (Auto) 0.9 % (0.0-4.3) 12/22/18 19:45 Baso % (Auto) 0.6 % (0.0-1.8) 12/22/18 19:45 Lymph # 0.9 K/mm3 (1.2-5.4) L 12/22/18 19:45 [place] # 0.6 K/mm3 (0.0-0.8) 12/22/18 19:45 Eos # 0.0 K/mm3 (0.0-0.4) 12/22/18 19:45 Baso # 0.0 K/mm3 (0.0-0.1) 12/22/18 19:45 Add Manual Diff Complete 12/23/18 05:00 Total Counted 100 12/23/18 05:00 Seg Neutrophils % Dry Cleaning Attendant 12/23/18 05:00 Seg Neuts % (Manual) 94.0 % (40.0-70.0) H 12/23/18 05:00 2.0 % 12/23/18 05:00 3.0 % (13.4-35.0) L 12/23/18 05:00 Reactive Lymphs % (Man) 0 % 12/23/18 05:00 1.0 % (0.0-7.3) 12/23/18 05:00 0 % (0.0-4.3) 12/23/18 05:00 0 % (0.0-1.8) 12/23/18 05:00 0 % 12/23/18 05:00 0 % 12/23/18 05:00 0 % 12/23/18 05:00 0 % 12/23/18 05:00 Nucleated RBC % Not Reportable 12/23/18 05:00 Seg Neutrophils # 3.6 K/mm3 (1.8-7.7) 12/22/18 19:45 Seg Neutrophils # Man 6.7 K/mm3 (1.8-7.7) 12/23/18 05:00 Band Neutrophils # 0.1 K/mm3 12/23/18 05:00 0.2 K/mm3 (1.2-5.4) L 12/23/18 05:00 Abs React Lymphs (Man) 0.0 K/mm3 12/23/18 05:00 0.1 K/mm3 (0.0-0.8) 12/23/18 05:00 0.0 K/mm3 (0.0-0.4) 12/23/18 05:00 0.0 K/mm3 (0.0-0.1) 12/23/18 05:00 0.0 K/mm3 12/23/18 05:00 0.0 K/mm3 12/23/18 05:00 0.0 K/mm3 12/23/18 05:00 Blast Cells # 0.0 K/mm3 12/23/18 05:00 WBC Morphology Not Reportable 12/23/18 05:00 Hypersegmented Neuts Not Reportable 12/23/18 05:00 Hyposegmented Neuts Not Reportable 12/23/18 05:00 Hypogranular Neuts Not Reportable 12/23/18 05:00 Not Reportable 12/23/18 05:00 Not Reportable 12/23/18 05:00 Not Reportable 12/23/18 05:00 Not Reportable 12/23/18 05:00 Not Reportable 12/23/18 05:00 Not Reportable 12/23/18 05:00 Consistent w auto 12/23/18 05:00 Not Reportable 12/23/18 05:00 Plt Clumps, EDTA Not Reportable 12/23/18 05:00 1+ 12/23/18 05:00 Not Reportable 12/23/18 05:00 Not Reportable 12/23/18 05:00 Plt Morphology Comment Not Reportable 12/23/18 05:00 RBC Morphology Normal 12/23/18 05:00 Dimorphic RBCs Not Reportable 12/23/18 05:00 Not Reportable 12/23/18 05:00 Not Reportable 12/23/18 05:00 Not Reportable 12/23/18 05:00 Not Reportable 12/23/18 05:00 Not Reportable 12/23/18 05:00 Not Reportable 12/23/18 05:00 Not Reportable 12/23/18 05:00 Not Reportable 12/23/18 05:00 Not Reportable 12/23/18 05:00 Not Reportable 12/23/18 05:00 Not Reportable 12/23/18 05:00 Not Reportable 12/23/18 05:00 Not Reportable 12/23/18 05:00 Not Reportable 12/23/18 05:00 Not Reportable 12/23/18 05:00 Not Reportable 12/23/18 05:00 Not Reportable 12/23/18 05:00 Not Reportable 12/23/18 05:00 Not Reportable 12/23/18 05:00 Acanthocytes (Spur) Not Reportable 12/23/18 05:00 Rouleaux Not Reportable 12/23/18 05:00 Not Reportable 12/23/18 05:00 Not Reportable 12/23/18 05:00 Not Reportable 12/23/18 05:00 Not Reportable 12/23/18 05:00 Hem Pathologist Commnt No 12/23/18 05:00 PT 13.4 Sec. (12.2-14.9) 12/22/18 19:45 INR 1.05 (0.87-1.13) 12/22/18 19:45 APTT 27.6 Sec. (24.2-36.6) 12/22/18 19:45 177.85 ng/mlDDU (0-234) 12/22/18 19:45 POC ABG pH 7.399 (7.35-7.45) 12/23/18 17:51 POC ABG pO2 62 (80-105) L 12/23/18 17:51 POC ABG HCO3 45.6 (22-26 mml/L) 12/23/18 17:51 POC ABG Total CO2 48 (23-27mmol/L) 12/23/18 17:51 POC ABG O2 Sat 90 12/23/18 17:51 POC ABG Base Excess 21 ((-2) - (+3)mmol/L) 12/23/18 17:51 30 % 12/23/18 17:51 Sodium 132 mmol/L (137-145) L 12/24/18 04:01 Potassium 4.3 mmol/L (3.6-5.0) 12/24/18 04:01 Chloride 85.3 mmol/L (98-107) L 12/24/18 04:01 Carbon Dioxide 40 mmol/L (22-30) H 12/24/18 04:01 11 mmol/L 12/24/18 04:01 BUN 17 mg/dL (7-17) 12/24/18 04:01 0.6 mg/dL (0.7-1.2) L 12/24/18 04:01 Estimated GFR > 60 ml/min 12/24/18 04:01 28 % 12/24/18 04:01 Glucose 129 mg/dL (65-100) H 12/24/18 04:01 Calcium 9.0 mg/dL (8.4-10.2) 12/24/18 04:01 1.00 mg/dL (0.1-1.2) 12/22/18 19:45 AST 32 units/L (5-40) 12/22/18 19:45 ALT 60 units/L (7-56) H 12/22/18 19:45 91 units/L (35-129) 12/22/18 19:45 230 units/L (91-180) H 12/22/18 22:47 < 0.010 ng/mL (0.00-0.029) 12/22/18 22:27 NT-Pro-B Natriuret Pep 28.81 pg/mL (0-900) 12/24/18 17:53 8.3 g/dL (6.3-8.2) H 12/22/18 19:45 3.4 g/dL (3.9-5) L 12/22/18 19:45 0.7 % 12/22/18 19:45 Active Medications - Current Medications Current Medications: Generic Name Dose Route Start Last Admin Trade Name Freq PRN Reason Stop Dose Admin Acetaminophen 650 mg 12/22/18 22:33 Tylenol PO Q4H PRN Pain MILD(1-3)/Fever >100.5/S[place]AN Albuterol 2.5 mg 12/22/18 22:33 12/24/18 09:45 Proventil IH 2.5 mg Q4HRT PRN Administration Shortness Of Breath Hydrochlorothiazide 25 mg 12/23/18 10:00 12/25/18 10:31 Hctz PO 25 mg DAILY MAURICIO Administration Azithromycin 500 mg/ Sodium 250 mls @ 250 mls/hr 12/23/18 10:00 12/24/18 10:00 Chloride IV 12/27/18 10:59 250 mls/hr Q24HR MAURICIO Administration Protocol Lorazepam 0.5 mg 12/23/18 17:43 12/23/18 22:50 Ativan IV 0.5 mg ONCE PRN Administration Agitation Metoprolol Tartrate 50 mg 12/23/18 10:00 12/25/18 10:32 Lopressor PO 50 mg BID MAURICIO Administration Ondansetron HCl 4 mg 12/22/18 22:33 Zofran IV Q8H PRN Nausea And Vomiting Sodium Chloride 10 ml 12/23/18 10:00 12/25/18 10:35 Sodium Chloride Flush Syringe 10 Ml IV 10 ml BID MAURICIO Administration Sodium Chloride 10 ml 12/22/18 22:33 Sodium Chloride Flush Syringe 10 Ml IV PRN PRN LINE FLUSH
[2018-12-25] MEDS: ZITHROMAX 500 MG in NACL 0.9% 250ML 250 ML IV SCH (13:14)
--- NOTE | 2018-12-25 15:37 | Progress Note ---
Assessment and Plan Imp: 1. OHS w/ probable ARRON 2. Morbid obesity 3. Acute bronchitis versus mild pulmonary edema 4. Acute respiratory failure, hypoxia 5. Chronic respiratory failure, hypercapnea 2/2 #1 6. Polycythemia, probably related to chronic hypoxia from untreated ARRON 7. R/o Pulm HTN Rec: 1. Cont. ABX x 5 days; cont. bronchodilators; stopped steroids 2. Weight loss 3. Avoid IVFs 4. BP control 5. Outpatient PSG; do not drive/operate machinery while sleepy 6. R pulmonary artery looks enlarged on CXR; F/u Echo results 7. Ambulate Plan of care reviewed w/ patient, she understands/agrees Subjective Date of service: 12/25/18 Principal diagnosis: SOB Interval history: No events. Back on O2 2L NC. Denies SOB, wheezing, cough. Active Medications Acetaminophen (Tylenol) 650 mg PO Q4H PRN PRN Reason: Pain MILD(1-3)/Fever >100.5/[place] Albuterol (Proventil) 2.5 mg IH Q4HRT PRN PRN Reason: Shortness Of Breath Last Admin: 12/24/18 09:45 Dose: 2.5 mg Documented by: Hydrochlorothiazide (Hctz) 25 mg PO DAILY [facility] Last Admin: 12/25/18 10:31 Dose: 25 mg Documented by: Azithromycin 500 mg/ Sodium (Chloride) 250 mls @ 250 mls/hr IV Q24HR [facility]; Protocol Stop: 12/27/18 10:59 Last Admin: 12/25/18 13:14 Dose: 250 mls/hr Documented by: Lorazepam (Ativan) 0.5 mg IV ONCE PRN PRN Reason: Agitation Last Admin: 12/23/18 22:50 Dose: 0.5 mg Documented by: Metoprolol Tartrate (Lopressor) 50 mg PO BID [facility] Last Admin: 12/25/18 10:32 Dose: 50 mg Documented by: Ondansetron HCl (Zofran) 4 mg IV Q8H PRN PRN Reason: Nausea And Vomiting Sodium Chloride (Sodium Chloride Flush Syringe 10 Ml) 10 ml IV BID [facility] Last Admin: 12/25/18 10:35 Dose: 10 ml Documented by: Sodium Chloride (Sodium Chloride Flush Syringe 10 Ml) 10 ml IV PRN PRN PRN Reason: LINE FLUSH Objective Vital Signs - 12hr 12/25/18 12/25/18 05:20 13:18 Temperature 98.0 F 98.1 F Pulse Rate 77 78 Respiratory 18 24 Rate Blood Pressure 136/88 131/82 O2 Sat by Pulse 93 92 Oximetry Constitutional: no acute distress, alert, other (morbidly obese) Eyes: non-icteric ENT: oropharynx moist Neck: supple Effort: normal Ascultation: Bilateral: diminished breath sounds (2/2 obesity) Cardiovascular: regular rate and rhythm (no mrg) Gastrointestinal: normoactive bowel sounds, soft, non-tender, non-distended Integumentary: normal Extremities: no cyanosis, pink and warm, edema (1+ bilateral LE edema) Neurologic: normal mental status, non-focal exam, pupils equal and round, CN II- XII normal Psychiatric: mood appropriate, affect normal CBC and BMP: 12/24/18 04:01 12/24/18 04:01 ABG, PT/INR, D-dimer: ABG POC ABG pH 7.399 (7.35-7.45) 12/23/18 17:51 POC ABG pO2 62 (80-105) L 12/23/18 17:51 POC ABG HCO3 45.6 (22-26 mml/L) 12/23/18 17:51 POC ABG Total CO2 48 (23-27mmol/L) 12/23/18 17:51 POC ABG O2 Sat 90 12/23/18 17:51 PT/INR, D-dimer PT 13.4 Sec. (12.2-14.9) 12/22/18 19:45 INR 1.05 (0.87-1.13) 12/22/18 19:45 177.85 ng/mlDDU (0-234) 12/22/18 19:45 Abnormal lab findings: Abnormal Labs 12/22/18 12/22/18 12/22/18 19:45 19:45 22:47 RBC 5.06 H Hgb 14.9 H Hct 44.9 H Mcintosh % (Auto) 11.0 H Lymph # 0.9 L Seg Neuts % (Manual) Lymphocytes % (Manual) Lymphocytes # (Manual) POC ABG pO2 Sodium 126 L Chloride 80.2 L Carbon Dioxide 38 H BUN 6 L Creatinine 0.5 L Glucose 110 H ALT 60 H Lactate Dehydrogenase 230 H Total Protein 8.3 H Albumin 3.4 L 12/23/18 12/23/18 12/23/18 05:00 05:00 17:51 RBC 5.27 H Hgb 15.5 H Hct 47.2 H [place]osh % (Auto) Lymph # Seg Neuts % (Manual) 94.0 H Lymphocytes % (Manual) 3.0 L Lymphocytes # (Manual) 0.2 L POC ABG pO2 62 L Sodium 129 L Chloride 80.8 L Carbon Dioxide 37 H BUN Creatinine 0.6 L Glucose 148 H ALT Lactate Dehydrogenase Total Protein Albumin 12/24/18 12/24/18 04:01 04:01 RBC Hgb 14.6 H Hct 44.8 H Mcintosh % (Auto) Lymph # Seg Neuts % (Manual) Lymphocytes % (Manual) Lymphocytes # (Manual) POC ABG pO2 Sodium 132 L Chloride 85.3 L Carbon Dioxide 40 H BUN Creatinine 0.6 L Glucose 129 H ALT Lactate Dehydrogenase Total Protein Albumin Chest x-ray: report reviewed, image reviewed
[2018-12-26] MEDS: HCTZ PO SCH (10:00)
[2018-12-26] MEDS: LOPRESSOR PO SCH ×2 (10:00→22:07)
[2018-12-26] MEDS: SODIUM CHLORIDE FLUSH SYRINGE 10 ML IV SCH ×2 (10:01→22:07)
[2018-12-26] MEDS: ZITHROMAX 500 MG in NACL 0.9% 250ML 250 ML IV SCH (10:04)
--- NOTE | 2018-12-26 11:24 | Progress Note ---
Assessment and Plan 1. OHS w/ probable ARRON 2. Morbid obesity 3. Acute bronchitis versus mild pulmonary edema 4. Acute respiratory failure, hypoxia 5. Chronic respiratory failure, hypercapnea 2/2 #1 6. Polycythemia, probably related to chronic hypoxia from untreated ARRON 7. R/o Pulm HTN Plan 1. Needs outpatient PSG 2. Most likely will need oxygen at discharge. If able to do 6 minute walk, would do. Otherwise, need to speak to lab about the room air blood gas from a few days ago and see if we can get these numbers. 3. Weight loss Subjective Date of service: 12/26/18 Principal diagnosis: SOB Interval history: No acute events overnight. Remains on oxygen. Echo did not reveal any pulmonary hypertension. I/O are not accurate. BP is stable. No documentation that bipap was worn last night. Objective Vital Signs - 12hr 12/25/18 12/26/18 12/26/18 23:42 06:29 09:01 Temperature 98.7 F 97.0 F L Pulse Rate 95 H 75 Respiratory 20 18 16 Rate Blood Pressure 150/86 131/86 O2 Sat by Pulse 85 95 Oximetry 12/26/18 10:00 Temperature Pulse Rate 80 Respiratory Rate Blood Pressure 131/86 O2 Sat by Pulse Oximetry Constitutional: no acute distress, alert, other (morbidly obese) Eyes: non-icteric ENT: oropharynx moist Neck: supple Effort: normal Ascultation: Bilateral: diminished breath sounds (2/2 obesity) Cardiovascular: regular rate and rhythm (no mrg) Gastrointestinal: normoactive bowel sounds, soft, non-tender, non-distended Integumentary: normal Extremities: no cyanosis, pink and warm, edema (1+ bilateral LE edema) Neurologic: normal mental status, non-focal exam, pupils equal and round, CN II- XII normal Psychiatric: mood appropriate, affect normal CBC and BMP: 12/24/18 04:01 12/24/18 04:01 ABG, PT/INR, D-dimer: ABG POC ABG pH 7.399 (7.35-7.45) 12/23/18 17:51 POC ABG pO2 62 (80-105) L 12/23/18 17:51 POC ABG HCO3 45.6 (22-26 mml/L) 12/23/18 17:51 POC ABG Total CO2 48 (23-27mmol/L) 12/23/18 17:51 POC ABG O2 Sat 90 12/23/18 17:51 PT/INR, D-dimer PT 13.4 Sec. (12.2-14.9) 12/22/18 19:45 INR 1.05 (0.87-1.13) 12/22/18 19:45 177.85 ng/mlDDU (0-234) 12/22/18 19:45 Abnormal lab findings: Abnormal Labs 12/22/18 12/22/18 12/22/18 19:45 19:45 22:47 RBC 5.06 H Hgb 14.9 H Hct 44.9 H Cannon % (Auto) 11.0 H Lymph # 0.9 L Seg Neuts % (Manual) Lymphocytes % (Manual) Lymphocytes # (Manual) POC ABG pO2 Sodium 126 L Chloride 80.2 L Carbon Dioxide 38 H BUN 6 L Creatinine 0.5 L Glucose 110 H ALT 60 H Lactate Dehydrogenase 230 H Total Protein 8.3 H Albumin 3.4 L 12/23/18 12/23/18 12/23/18 05:00 05:00 17:51 RBC 5.27 H Hgb 15.5 H Hct 47.2 H Cannon % (Auto) Lymph # Seg Neuts % (Manual) 94.0 H Lymphocytes % (Manual) 3.0 L Lymphocytes # (Manual) 0.2 L POC ABG pO2 62 L Sodium 129 L Chloride 80.8 L Carbon Dioxide 37 H BUN Creatinine 0.6 L Glucose 148 H ALT Lactate Dehydrogenase Total Protein Albumin 12/24/18 12/24/18 04:01 04:01 RBC Hgb 14.6 H Hct 44.8 H Cannon % (Auto) Lymph # Seg Neuts % (Manual) Lymphocytes % (Manual) Lymphocytes # (Manual) POC ABG pO2 Sodium 132 L Chloride 85.3 L Carbon Dioxide 40 H BUN Creatinine 0.6 L Glucose 129 H ALT Lactate Dehydrogenase Total Protein Albumin
--- NOTE | 2018-12-26 15:12 | Discharge Summary ---
Providers - Providers Date of Admission: 12/22/18 22:33 Attending physician: BRENNEN WINKLER MD 12/23/18 14:15 Consult to Physician [CONS] Routine Comment: Consulting Provider: JANES PANIAGUA Physician Instructions: Reason For Exam: copd exaceration Primary care physician: JESSICA FOSS Hospitalization Reason for admission: acute respiratory failure Condition: Stable Hospital course: 53 YO Female with HTN, Obesity Hypoventilation Syndrome presents to ED for evaluation. Pt states that she has experienced shortness of breath, productive cough of yellow sputum over the past 1 week with persistent symptoms over the same time frame. Pt also reports elevated blood pressure. Pt seen and evaluated by her PCP on Wednesday and treated with outpatient therapy but has not experienced improvement in symptoms. Pt transported to [facility] via private vehicle. Pt seen and evaluated in ED and found to have Bronchitis, as well as Acute Respiratory Failure with pulse oximetry of 89% on room air. Pt also faoud to have elevated Gamma Gap suspicious for Multiple Myeloma. Pt treated with supportive care, supplemental oxygen and admitted to medical floor. Pt denies fever, chills, palpitations, CP, Syncope, hemoptysis, unilateral leg swelling, calf pain, prolonged travel/immoblity, individual/family history of DVT/PE/Bleeding/Blood Clotting Disorders. No prior admission for review. (1) Bronchitis Current Visit: Yes Status: Acute Plan to address problem: IV antibiotic therapy, supplemental oxygen, chest x ray. Discontinued Steroid (2) Respiratory failure/Pulmonary edema/Hypercapenia Current Visit: Yes Status: Acute Qualifiers: Chronicity: acute Respiratory failure complication: hypoxia Qualified Code(s): J96.01 - Acute respiratory failure with hypoxia Plan to address problem: Supplemental oxygen, nebulizer therapy, pulse oximetry, NIPPV as clinically indicated, D dimer, Pulmonary consult ABG noted, patient improved with BIPAP wean 02 Given a dose of Lasix yesterday (3) Hyponatremia syndrome Current Visit: Yes Status: Acute Plan to address problem: Improving some IVF resuscitation therapy, repeat bmp in am. (4) Multiple myeloma Current Visit: Yes Status: Suspected Plan to address problem: [place], LDH, B2 Microglobulin, SPEP, UPEP, (5) Obesity hypoventilation syndrome Current Visit: Yes Status: Acute Plan to address problem: Supplemental oxygen, nebulizer therapy, NIPPV as clinically indicated, outpatient sleep study, balanced diet, increased physical activity at discharge, +15 min dietary counseling. Outpatient ARRON study recommended (6)? ELEVATED LDH, LOW NA, ELEVATED GAMMA Further outpatient work up recommended DVT prophylaxis Current Visit: Yes Status: Acute Plan to address problem: SCD to BLE while in bed, Pt ambulatory Disposition: [id number] HOME UNDER HOME HL[facility] Time spent for discharge: 35 mins Exam - Constitutional Vitals: Temp Pulse Resp BP Pulse Ox 97.7 F 70 22 126/69 91 12/26/18 11:52 12/26/18 11:52 12/26/18 11:52 12/26/18 11:52 12/26/18 11:52 Plan Activity: advance as tolerated, fall precautions Diet: low fat Special Instructions: record daily BP diary, home oxygen via (nasal cannula @ 2 liters per minute) Additional Instructions: must follow with Building Consultant to have sleep study arranged. Follow up with: JESSICA FOSS MD [Primary Care Provider] - 3-5 Days NORMAN KRAMER MD [Staff Physician] - 7 Days Prescriptions: ALBUTEROL Inhaler (OR & NICU) [ProAir HFA Inhaler] 2 puff IH QID PRN #1 inhalation PRN Reason: Shortness Of Breath Azithromycin [Zithromax TAB] 250 mg PO QDAY #3 tablet
--- NOTE | 2018-12-26 18:14 | Progress Note ---
Assessment and Plan Assessment and plan: 53 YO Female with HTN, Obesity Hypoventilation Syndrome presents to ED for evaluation. Pt states that she has experienced shortness of breath, productive cough of yellow sputum over the past 1 week with persistent symptoms over the same time frame. Pt also reports elevated blood pressure. Pt seen and evaluated by her PCP on Wednesday and treated with outpatient therapy but has not experienced improvement in symptoms. Pt transported to [facility] via private vehicle. Pt seen and evaluated in ED and found to have Bronchitis, as well as Acute Respiratory Failure with pulse oximetry of 89% on room air. Pt also faoud to have elevated Gamma Gap suspicious for Multiple Myeloma. Pt treated with supportive care, rivera pplemental oxygen and admitted to medical floor. Pt denies fever, chills, palpitations, CP, Syncope, hemoptysis, unilateral leg swelling, calf pain, prolonged travel/immoblity, individual/family history of DVT/PE/Bleeding/Blood Clotting Disorders. No prior admission for review. * ABG on admission showed hypercapnic and hypoxia condition patient was treated with BiPAP therapy * she was also hypoxic on 6 minute walk and oxygen arranged for outpatient * She was also treated for acute bronchitis versus mild pulmonary edema with antibiotics and diuresis with good improvement * I advised the vision of the lateral need to lose weight she will verbalize understanding and pulmonary evaluated and recommended outpatient sleep study for which the patient verbalized understanding and also reported that she has a family member that has sleep apnea. Acute respiratory failure, hypoxia Chronic respiratory failure, hypercapnea secondary to above OHS w/ probable ARRON Morbid obesity Acute bronchitis Polycythemia, probably related to chronic hypoxia from untreated ARRON R/o Pulm HTN Hyponatremia Elevated Gamma rule out multiple myeloma-recommended outpatient workup Plan Continue current therapy, Discharge on home o2 in am once home health has setup strongly encouraged to go for sleep study DVT/GI prophy History Interval history: Patient seen and examined, reports shortness of breath, cough. well improved, but hypoxic with ambulation Hospitalist Physical - Physical exam Narrative exam: VITAL SIGNS: Reviewed. GENERAL: The patient appeared normally developed, Morbidly obese Vital signs as documented. HEAD: No signs of head trauma. EYES: Pupils are equal. Extraocular motions intact. EARS: Hearing grossly intact. MOUTH: Oropharynx is normal. NECK: No adenopathy, no JVD. CHEST: Chest with diminished breath sounds bilaterally. No wheezes, rales, or rhonchi. CARDIAC: Regular rate and rhythm. S1 and S2, without murmurs, gallops, or rubs. VASCULAR: No Edema. Peripheral pulses normal and equal in all extremities. ABDOMEN: Soft, non tender and non distended. No rebound or guarding, and no masses palpated. Bowel Sounds normal. MUSCULOSKELETAL: Good range of motion of all major joints. Extremities without clubbing, cyanosis or edema. NEUROLOGIC EXAM: Alert and oriented x 3 No focal sensory or strength deficits. Speech normal. Follows commands. PSYCHIATRIC: Mood normal. SKIN: detial exam as documented in skin assessment - Constitutional Vitals: Temp Pulse Resp BP Pulse Ox 97.7 F 70 22 126/69 91 12/26/18 11:52 12/26/18 11:52 12/26/18 11:52 12/26/18 11:52 12/26/18 11:52 General appearance: Present: mild distress, obese Results - Labs CBC & Chem 7: 12/24/18 04:01 12/24/18 04:01 Labs: Laboratory Last Values WBC 5.8 K/mm3 (4.5-11.0) 12/24/18 04:01 RBC 4.98 M/mm3 (3.65-5.03) 12/24/18 04:01 Hgb 14.6 gm/dl (10.1-14.3) H 12/24/18 04:01 Hct 44.8 % (30.3-42.9) H 12/24/18 04:01 MCV 90 fl (79-97) 12/24/18 04:01 MCH 29 pg (28-32) 12/24/18 04:01 MCHC 33 % (30-34) 12/24/18 04:01 RDW 14.2 % (13.2-15.2) 12/24/18 04:01 Plt Count 275 K/mm3 (140-440) 12/24/18 04:01 Lymph % (Auto) 17.5 % (13.4-35.0) 12/22/18 19:45 [place] % (Auto) 11.0 % (0.0-7.3) H 12/22/18 19:45 Eos % (Auto) 0.9 % (0.0-4.3) 12/22/18 19:45 Baso % (Auto) 0.6 % (0.0-1.8) 12/22/18 19:45 Lymph # 0.9 K/mm3 (1.2-5.4) L 12/22/18 19:45 [place] # 0.6 K/mm3 (0.0-0.8) 12/22/18 19:45 Eos # 0.0 K/mm3 (0.0-0.4) 12/22/18 19:45 Baso # 0.0 K/mm3 (0.0-0.1) 12/22/18 19:45 Add Manual Diff Complete 12/23/18 05:00 Total Counted 100 12/23/18 05:00 Seg Neutrophils % Cloth Bolt Bander 12/23/18 05:00 Seg Neuts % (Manual) 94.0 % (40.0-70.0) H 12/23/18 05:00 2.0 % 12/23/18 05:00 3.0 % (13.4-35.0) L 12/23/18 05:00 Reactive Lymphs % (Man) 0 % 12/23/18 05:00 1.0 % (0.0-7.3) 12/23/18 05:00 0 % (0.0-4.3) 12/23/18 05:00 0 % (0.0-1.8) 12/23/18 05:00 0 % 12/23/18 05:00 0 % 12/23/18 05:00 0 % 12/23/18 05:00 0 % 12/23/18 05:00 Nucleated RBC % Not Reportable 12/23/18 05:00 Seg Neutrophils # 3.6 K/mm3 (1.8-7.7) 12/22/18 19:45 Seg Neutrophils # Man 6.7 K/mm3 (1.8-7.7) 12/23/18 05:00 Band Neutrophils # 0.1 K/mm3 12/23/18 05:00 0.2 K/mm3 (1.2-5.4) L 12/23/18 05:00 Abs React Lymphs (Man) 0.0 K/mm3 12/23/18 05:00 0.1 K/mm3 (0.0-0.8) 12/23/18 05:00 0.0 K/mm3 (0.0-0.4) 12/23/18 05:00 0.0 K/mm3 (0.0-0.1) 12/23/18 05:00 0.0 K/mm3 12/23/18 05:00 0.0 K/mm3 12/23/18 05:00 0.0 K/mm3 12/23/18 05:00 Blast Cells # 0.0 K/mm3 12/23/18 05:00 WBC Morphology Not Reportable 12/23/18 05:00 Hypersegmented Neuts Not Reportable 12/23/18 05:00 Hyposegmented Neuts Not Reportable 12/23/18 05:00 Hypogranular Neuts Not Reportable 12/23/18 05:00 Not Reportable 12/23/18 05:00 Not Reportable 12/23/18 05:00 Not Reportable 12/23/18 05:00 Not Reportable 12/23/18 05:00 Not Reportable 12/23/18 05:00 Not Reportable 12/23/18 05:00 Consistent w auto 12/23/18 05:00 Not Reportable 12/23/18 05:00 Plt Clumps, EDTA Not Reportable 12/23/18 05:00 1+ 12/23/18 05:00 Not Reportable 12/23/18 05:00 Not Reportable 12/23/18 05:00 Plt Morphology Comment Not Reportable 12/23/18 05:00 RBC Morphology Normal 12/23/18 05:00 Dimorphic RBCs Not Reportable 12/23/18 05:00 Not Reportable 12/23/18 05:00 Not Reportable 12/23/18 05:00 Not Reportable 12/23/18 05:00 Not Reportable 12/23/18 05:00 Not Reportable 12/23/18 05:00 Not Reportable 12/23/18 05:00 Not Reportable 12/23/18 05:00 Not Reportable 12/23/18 05:00 Not Reportable 12/23/18 05:00 Not Reportable 12/23/18 05:00 Not Reportable 12/23/18 05:00 Not Reportable 12/23/18 05:00 Not Reportable 12/23/18 05:00 Not Reportable 12/23/18 05:00 Not Reportable 12/23/18 05:00 Not Reportable 12/23/18 05:00 Not Reportable 12/23/18 05:00 Not Reportable 12/23/18 05:00 Not Reportable 12/23/18 05:00 Acanthocytes (Spur) Not Reportable 12/23/18 05:00 Rouleaux Not Reportable 12/23/18 05:00 Not Reportable 12/23/18 05:00 Not Reportable 12/23/18 05:00 Not Reportable 12/23/18 05:00 Not Reportable 12/23/18 05:00 Hem Pathologist Commnt No 12/23/18 05:00 PT 13.4 Sec. (12.2-14.9) 12/22/18 19:45 INR 1.05 (0.87-1.13) 12/22/18 19:45 APTT 27.6 Sec. (24.2-36.6) 12/22/18 19:45 177.85 ng/mlDDU (0-234) 12/22/18 19:45 POC ABG pH 7.399 (7.35-7.45) 12/23/18 17:51 POC ABG pO2 62 (80-105) L 12/23/18 17:51 POC ABG HCO3 45.6 (22-26 mml/L) 12/23/18 17:51 POC ABG Total CO2 48 (23-27mmol/L) 12/23/18 17:51 POC ABG O2 Sat 90 12/23/18 17:51 POC ABG Base Excess 21 ((-2) - (+3)mmol/L) 12/23/18 17:51 30 % 12/23/18 17:51 Sodium 132 mmol/L (137-145) L 12/24/18 04:01 Potassium 4.3 mmol/L (3.6-5.0) 12/24/18 04:01 Chloride 85.3 mmol/L (98-107) L 12/24/18 04:01 Carbon Dioxide 40 mmol/L (22-30) H 12/24/18 04:01 11 mmol/L 12/24/18 04:01 BUN 17 mg/dL (7-17) 12/24/18 04:01 0.6 mg/dL (0.7-1.2) L 12/24/18 04:01 Estimated GFR > 60 ml/min 12/24/18 04:01 28 % 12/24/18 04:01 Glucose 129 mg/dL (65-100) H 12/24/18 04:01 Calcium 9.0 mg/dL (8.4-10.2) 12/24/18 04:01 1.00 mg/dL (0.1-1.2) 12/22/18 19:45 AST 32 units/L (5-40) 12/22/18 19:45 ALT 60 units/L (7-56) H 12/22/18 19:45 91 units/L (35-129) 12/22/18 19:45 230 units/L (91-180) H 12/22/18 22:47 < 0.010 ng/mL (0.00-0.029) 12/22/18 22:27 NT-Pro-B Natriuret Pep 28.81 pg/mL (0-900) 12/24/18 17:53 8.3 g/dL (6.3-8.2) H 12/22/18 19:45 3.4 g/dL (3.9-5) L 12/22/18 19:45 0.7 % 12/22/18 19:45 Active Medications - Current Medications Current Medications: Generic Name Dose Route Start Last Admin Trade Name Akshatq PRN Reason Stop Dose Admin Acetaminophen 650 mg 12/22/18 22:33 Tylenol PO Q4H PRN Pain MILD(1-3)/Fever >100.5/[place] Albuterol 2.5 mg 12/22/18 22:33 12/24/18 09:45 Proventil IH 2.5 mg Q4HRT PRN Administration Shortness Of Breath Hydrochlorothiazide 25 mg 12/23/18 10:00 12/26/18 10:00 Hctz PO 25 mg DAILY MAURICIO Administration Azithromycin 500 mg/ Sodium 250 mls @ 250 mls/hr 12/23/18 10:00 12/26/18 10:04 Chloride IV 12/27/18 10:59 250 mls/hr Q24HR MAURICIO Administration Protocol Lorazepam 0.5 mg 12/23/18 17:43 12/23/18 22:50 Ativan IV 0.5 mg ONCE PRN Administration Agitation Metoprolol Tartrate 50 mg 12/23/18 10:00 12/26/18 10:00 Lopressor PO 50 mg BID MAURICIO Administration Ondansetron HCl 4 mg 12/22/18 22:33 Zofran IV Q8H PRN Nausea And Vomiting Sodium Chloride 10 ml 12/23/18 10:00 12/26/18 10:01 Sodium Chloride Flush Syringe 10 Ml IV 10 ml BID MAURICIO Administration Sodium Chloride 10 ml 12/22/18 22:33 Sodium Chloride Flush Syringe 10 Ml IV PRN PRN LINE FLUSH
[2018-12-27] MEDS: LOPRESSOR PO SCH (09:49)
[2018-12-27] MEDS: HCTZ PO SCH (09:49)
[2018-12-27] MEDS: ZITHROMAX 500 MG in NACL 0.9% 250ML 250 ML IV SCH (09:51)
[2018-12-27] MEDS: SODIUM CHLORIDE FLUSH SYRINGE 10 ML IV SCH (09:52)
[2018-12-27 11:56] VITALS: BP 128/73
--- NOTE | 2018-12-27 12:25 | Progress Note ---
Assessment and Plan 1. OHS w/ probable ARRON 2. Morbid obesity 3. Acute bronchitis versus mild pulmonary edema 4. Acute respiratory failure, hypoxia 5. Chronic respiratory failure, hypercapnea 2/2 #1 6. Polycythemia, probably related to chronic hypoxia from untreated ARRON 7. R/o Pulm HTN Plan 1. Needs outpatient PSG ( can follow up with Meghana) 2. Qualifies for home O2. 3. Weight loss 4. No objection to discharge today. Subjective Date of service: 12/27/18 Principal diagnosis: SOB Interval history: No acute events. Failed 6 minute walk on yesterday. Needs oxygen and is currently waiting on this. Remainder of the review is negative. Objective Vital Signs - 12hr 12/27/18 12/27/18 12/27/18 00:28 01:40 06:01 Temperature 97.8 F 98.0 F Pulse Rate 78 85 76 Respiratory 18 22 16 Rate Blood Pressure 124/84 107/32 O2 Sat by Pulse 92 95 92 Oximetry 12/27/18 12/27/18 12/27/18 07:46 09:13 09:52 Temperature Pulse Rate Respiratory 16 Rate Blood Pressure 108/63 O2 Sat by Pulse 96 Oximetry 12/27/18 11:37 Temperature 97.7 F Pulse Rate 86 Respiratory 22 Rate Blood Pressure 128/73 O2 Sat by Pulse 92 Oximetry Constitutional: no acute distress, alert, other (morbidly obese) Eyes: non-icteric ENT: oropharynx moist Neck: supple Effort: normal Ascultation: Bilateral: diminished breath sounds (2/2 obesity) Cardiovascular: regular rate and rhythm (no mrg) Gastrointestinal: normoactive bowel sounds, soft, non-tender, non-distended Integumentary: normal Extremities: no cyanosis, pink and warm, edema (1+ bilateral LE edema) Neurologic: normal mental status, non-focal exam, pupils equal and round, CN II- XII normal Psychiatric: mood appropriate, affect normal CBC and BMP: 12/24/18 04:01 12/24/18 04:01 ABG, PT/INR, D-dimer: ABG POC ABG pH 7.399 (7.35-7.45) 12/23/18 17:51 POC ABG pO2 62 (80-105) L 12/23/18 17:51 POC ABG HCO3 45.6 (22-26 mml/L) 12/23/18 17:51 POC ABG Total CO2 48 (23-27mmol/L) 12/23/18 17:51 POC ABG O2 Sat 90 12/23/18 17:51 PT/INR, D-dimer PT 13.4 Sec. (12.2-14.9) 12/22/18 19:45 INR 1.05 (0.87-1.13) 12/22/18 19:45 177.85 ng/mlDDU (0-234) 12/22/18 19:45 Abnormal lab findings: Abnormal Labs 12/22/18 12/22/18 12/22/18 19:45 19:45 22:47 RBC 5.06 H Hgb 14.9 H Hct 44.9 H [place] % (Auto) 11.0 H Lymph # 0.9 L Seg Neuts % (Manual) Lymphocytes % (Manual) Lymphocytes # (Manual) POC ABG pO2 Sodium 126 L Chloride 80.2 L Carbon Dioxide 38 H BUN 6 L Creatinine 0.5 L Glucose 110 H ALT 60 H Lactate Dehydrogenase 230 H Total Protein 8.3 H Albumin 3.4 L 12/23/18 12/23/18 12/23/18 05:00 05:00 17:51 RBC 5.27 H Hgb 15.5 H Hct 47.2 H [place] % (Auto) Lymph # Seg Neuts % (Manual) 94.0 H Lymphocytes % (Manual) 3.0 L Lymphocytes # (Manual) 0.2 L POC ABG pO2 62 L Sodium 129 L Chloride 80.8 L Carbon Dioxide 37 H BUN Creatinine 0.6 L Glucose 148 H ALT Lactate Dehydrogenase Total Protein Albumin 12/24/18 12/24/18 04:01 04:01 RBC Hgb 14.6 H Hct 44.8 H [place] % (Auto) Lymph # Seg Neuts % (Manual) Lymphocytes % (Manual) Lymphocytes # (Manual) POC ABG pO2 Sodium 132 L Chloride 85.3 L Carbon Dioxide 40 H BUN Creatinine 0.6 L Glucose 129 H ALT Lactate Dehydrogenase Total Protein Albumin
--- NOTE | 2018-12-27 12:47 | Discharge Summary ---
Providers - Providers Date of Admission: 12/22/18 22:33 Date of discharge: 12/27/18 Attending physician: ANDERSON MONZON 12/23/18 14:15 Consult to Physician [CONS] Routine Comment: Consulting Provider: JANES PANIAGUA Physician Instructions: Reason For Exam: copd exaceration Primary care physician: JESSICA FOSS Hospitalization Condition: Stable Hospital course: Patient is a 53 yo woman with a history of HTN and Obesity with suspected Hypoventilation Syndrome who presented to ED with shortness of breath and productive cough of yellow sputum. Pt seen and evaluated in ED and found to have Bronchitis, as well as Acute Respiratory Failure with pulse oximetry of 86 % on room air with activity. Pt also found to have elevated Gamma Gap suspicious for Multiple Myeloma, I have advised her to see Heme/Oncology Discharge Diagnoses: Acute hypoxic respiratory failure Chronic respiratory failure, hypercapnea secondary to above OHS w/ probable ARRON Morbid obesity, bmi 51.1 Acute bronchitis Polycythemia, probably related to chronic hypoxia from untreated ARRON R/o Pulm HTN Hyponatremia Elevated Gamma rule out multiple myeloma-recommended outpatient workup Disposition: [id number] HOME UNDER HOME [facility] Time spent for discharge: 35 minutes Core Measure Documentation - Palliative Care Palliative Care/ Comfort Measures: Not Applicable - Core Measures Any of the following diagnoses?: none - VTE Discharge Requirements Deep Vein Thrombosis/Pulmonary Embolism Present on Admission: No Has pt received <5 days of overlap therapy or INR<2.0: No Anticoagulant overlap therapy prescribed at discharge: No Contraindication No Overlap Therapy order at DC: Not Indicated Exam - Physical Exam Narrative exam: Gen: WDWN, NAD, Awake, Alert, Orientated, bmi 51.1 HEENT: NCAT, EOMI, PERRL, OP Clear Neck: supple, no adenopathy, no thyromegaly, no JVD CVS/Heart: RRR, normal S1S2, pulses present bilaterally Chest/Lungs: CTA B, Symmetrical chest expansion, good air entry bilaterally GI/Abdomen: soft, NTND, good bowel sounds, no guarding or rebound /Bladder: no suprapubic tenderness, no CVA or paraspinal tenderness Extermity/Skin: no c/c/e, no obvious rash MSK: FROM x 4 Neuro: CN 2-12 grossly intact, no new focal deficits Psych: calm - Constitutional Vitals: Temp Pulse Resp BP Pulse Ox 97.7 F 86 22 128/73 92 12/27/18 11:37 12/27/18 11:37 12/27/18 11:37 12/27/18 11:37 12/27/18 11:37 Plan Activity: other (no strenous activity until cleared by Script Supervisor) Diet: low fat, low cholesterol, low salt Special Instructions: home oxygen via Durable Medical Equipment Needed Upon Discharge: Oxygen Additional Instructions: #1 You need to see Lung specialist, first available appointment to schedule a sleep study. #2 You need to see a blood specialist, Dr. Chavez for elevated protein in your blood Follow up with: NORMAN KRAMER MD [Staff Physician] - 7 Days JESSICA FOSS MD [Primary Care Provider] - 3-5 Days ALINE CHAVEZ MD [Staff Physician] - 7 Days Prescriptions: ALBUTEROL Inhaler (OR & NICU) [ProAir HFA Inhaler] 2 puff IH QID PRN #1 inhalat ion PRN Reason: Shortness Of Breath Azithromycin [Zithromax TAB] 250 mg PO QDAY #3 tablet
[2018-12-27 23:01] LABS: Albumin 3.1 g/dL (3.8-4.8); Gamma Globulin 2.2 g/dL (0.8-1.7)
[2018-12-30 06:09] LABS: Abnormal Protein Band 1 SEE SCANNED RESULT; Abnormal Protein Band 2 SEE SCANNED RESULT; Albumin SEE SCANNED RESULT; Creatinine, Random Urine SEE SCANNED RESULT; Gamma Globulin SEE SCANNED RESULT; Interpretation SEE SCANNED RESULT; Protein/Creatinine Ratio SEE SCANNED RESULT
== END 2018-12-27 14:20 | disposition home or self-care (01) | DRG 189 ==
LOC: ED 18:30 → 3A 22:33
PROVIDERS: ADMIT Internal Medicine; ATTEND Internal Medicine
PROC: 5A09357 Assistance with Respiratory Ventilation, Less than 24 Consecutive Hours, Continuous Positive Airway Pressure (ICD-10-PCS; 2018-12-23)
PROC: 4A033R1 Measurement of Arterial Saturation, Peripheral, Percutaneous Approach (ICD-10-PCS; 2018-12-23)
PROC: 5A09357 Assistance with Respiratory Ventilation, Less than 24 Consecutive Hours, Continuous Positive Airway Pressure (ICD-10-PCS; 2018-12-24)
PROC: 5A09357 Assistance with Respiratory Ventilation, Less than 24 Consecutive Hours, Continuous Positive Airway Pressure (ICD-10-PCS; principal; 2018-12-27)
DX: J96.21 Acute and chronic respiratory failure with hypoxia (principal); E87.1 Hypo-osmolality and hyponatremia; C90.00 Multiple myeloma not having achieved remission; E66.2 Morbid (severe) obesity with alveolar hypoventilation; Z68.43 Body mass index [BMI] 50.0-59.9, adult; J20.9 Acute bronchitis, unspecified; J96.22 Acute and chronic respiratory failure with hypercapnia; D75.1 Secondary polycythemia; I10 Essential (primary) hypertension; Z82.49 Family history of ischemic heart disease and other diseases of the circulatory system; Z88.5 Allergy status to narcotic agent; Z88.8 Allergy status to other drugs, medicaments and biological substances
CPT/HCPCS: 36415; 36600; 71046; 80048; 80053; 82232; 82803; 83615; 83880; 84165; 84166; 84484; 85007; 85025; 85027; 85379; 85610; 85730; 93005; 93010; 93306; 94640; 94660; 94760; 96374; 96375; 99291; G0378; J0360; J0456; J1940; J2060; J2920; J7050

== ENCOUNTER 2019-04-17 06:20 | Emergency (ER) | payer OTHER ==
[2019-04-17 07:09] LABS: Basophils % (Auto) 0.3 % (0.0-1.8); Eosinophils # (Auto) 0.2 K/mm3 (0.0-0.4); Eosinophils % (Auto) 3.8 % (0.0-4.3); Hematocrit 41.7 % (30.3-42.9); Hemoglobin 13.8 gm/dl (10.1-14.3); Lymphocytes # (Auto) 0.8 K/mm3 (1.2-5.4); Mean Corpuscular HGB Conc 33 % (30-34); Mean Corpuscular Volume 87 fl (79-97); Monocytes # (Auto) 0.5 K/mm3 (0.0-0.8); Monocytes % (Auto) 8.8 % (0.0-7.3); Platelet Count 284 K/mm3 (140-440); Red Blood Count 4.78 M/mm3 (3.65-5.03); Red Cell Distribution Width 14.1 % (13.2-15.2)
[2019-04-17] MEDS ORDERED: KETOROLAC 30 MG/1 ML INJ IV ONE (07:14)
[2019-04-17] MEDS ORDERED: SODIUM CHLORIDE 0.9% 1000 ML 1,000 ML IV ONE (07:14)
[2019-04-17] MEDS ORDERED: ONDANSETRON 4 MG/2 ML INJ IV ONE (07:14)
--- NOTE | 2019-04-17 07:15 | Emergency Department Report ---
<MORGAN SANDOVAL A - Last Filed: 04/17/19 12:08> ED Abdominal Pain HPI - General Chief Complaint: Abdominal Pain Stated Complaint: GALL BLADDER PAIN Time Seen by Provider: 04/17/19 07:13 Source: patient Mode of arrival: Ambulatory Limitations: No Limitations - History of Present Illness Initial Comments: Arsenio is a 53-year-old female that comes to the ER today with worsening right upper quadrant pain. She has had this pain for a couple weeks and is actually seen her primary care doctor who is Dr. Mandel. He has been working her up for her gallbladder. She states that she has had worsening pain nausea and some v omiting over the last week. She comes to the ER because the pain is more than she can bear at this point. Patient denies having had any imaging on her gallbladder. She does have an upcoming appointment with Dr. Mandel. On initial exam the patient's only reported medical history is hypertension. She denies having any surgeries. She is allergic to Vicodin ES Her mother of heart failure Father of stroke. She denies any history of smoking. She does not drink. Does not use drugs. Home medications Patient reports taking a blood pressure pill and a water pill. Initial workup was for her abdominal pain. However after returning from CT she had a change in clinical condition where she became very to Neck, tachycardic and hypoxic with her sats into the mid 80s. I personally side as low as 85% on room air. Patient denies having recent chest pain. She states that she does h ave some shortness of breath. On further probing the patient states that she has had low oxygen before but that she was told it was because she was obese. On further review with the EMR patient had been admitted in December for similar ABG findings. And was subsequently discharged home after having what seems to be a normal echocardiogram. Complaint: abdominal pain -: week(s) Location: RUQ Migration to: no migration Quality: aching, sharp Consistency: constant Improves With: nothing Worsens With: nothing Associated Symptoms: nausea Treatments Prior to Arrival: other - Related Data Home Medications Medication Instructions Recorded Confirmed Last Taken Metoprolol [Lopressor TAB] 50 mg PO BID 12/22/18 12/22/18 Unknown hydroCHLOROthiazide [HCTZ] 25 mg PO DAILY 12/22/18 12/22/18 Unknown Previous Rx's Medication Instructions Recorded Last Taken Type ALBUTEROL Inhaler (OR & NICU) 2 puff IH QID PRN #1 inhalation 12/26/18 Unknown Rx [ProAir HFA Inhaler] Dicyclomine [Bentyl] 20 mg PO QID #10 tablet 04/17/19 Unknown Rx Ondansetron [Zofran Odt] 4 mg PO Q8HR #10 tab.rapdis 04/17/19 Unknown Rx traMADol [Ultram] 50 mg PO Q6HR PRN #12 tablet 04/17/19 Unknown Rx Allergies Allergy/AdvReac Type Severity Reaction Status Date / Time acetaminophen [From Vicodin] AdvReac Nausea Verified 12/22/18 18:31 hydrocodone [From Vicodin] AdvReac Nausea Verified 12/22/18 18:31 ED Review of Systems Comment: All other systems reviewed and negative ED Past Medical Hx - Past Medical History Previous Medical History?: Yes Hx Hypertension: Yes Additional medical history: gallbladder - Surgical History Past Surgical History?: No - Family History Family history: other (mom dec hf and dad dec cva) - Social History Smoking Status: Never Smoker Substance Use Type: None - Medications Home Medications: Home Medications Medication Instructions Recorded Confirmed Last Taken Type Metoprolol [Lopressor TAB] 50 mg PO BID 12/22/18 12/22/18 Unknown History hydroCHLOROthiazide [HCTZ] 25 mg PO DAILY 12/22/18 12/22/18 Unknown History ALBUTEROL Inhaler (OR & NICU) 2 puff IH QID PRN #1 inhalation 12/26/18 Unknown Rx [ProAir HFA Inhaler] Dicyclomine [Bentyl] 20 mg PO QID #10 tablet 04/17/19 Unknown Rx Ondansetron [Zofran Odt] 4 mg PO Q8HR #10 tab.rapdis 04/17/19 Unknown Rx traMADol [Ultram] 50 mg PO Q6HR PRN #12 tablet 04/17/19 Unknown Rx ED Physical Exam - General Limitations: No Limitations General appearance: alert - Head Head exam: Present: atraumatic, normocephalic - Eye Eye exam: Present: normal appearance, PERRL - ENT ENT exam: Present: mucous membranes moist - Neck Neck exam: Present: normal inspection - Respiratory Respiratory exam: Present: normal lung sounds bilaterally. Absent: respiratory distress - Cardiovascular Cardiovascular Exam: Present: regular rate, normal rhythm. Absent: systolic murmur, diastolic murmur, rubs, gallop - GI/Abdominal GI/Abdominal exam: Present: soft, tenderness, guarding, normal bowel sounds - Rectal Rectal exam: Present: deferred - Extremities Exam Extremities exam: Present: normal inspection, full ROM - Back Exam Back exam: Present: normal inspection, full ROM. Absent: CVA tenderness (R), CVA tenderness (L) - Neurological Exam Neurological exam: Present: alert, oriented X3 - Psychiatric Psychiatric exam: Present: normal affect, normal mood - Skin Skin exam: Present: warm, dry, intact, normal color. Absent: rash ED Course - Reevaluation(s) Reevaluation #1: upon return from CT/US pt was was found tachynic, tachycardic and hypoxic with sat 85 ABG drawn by provider noted pt on monitor 3L NC required to get pt over 90% 12 lead ordered to main for monitoring ED Medical Decision Making - Lab Data Result diagrams: 04/17/19 06:39 04/17/19 06:39 - EKG Data -: EKG Interpreted by Oh EKG shows normal: sinus rhythm Rate: tachycardia - Radiology Data Radiology results: report reviewed, image reviewed - Medical Decision Making pt comes to ER with abd pain work up started labs noted us and CT done then pt had a change in condition - see course section Pt has tachycardia/tachypnea and hypoxia she states she had this one time before and saw pulmonary MD and she was told it was because she is obese I'm concerned based on clinical exam for PE She denies hx of PE pt had contrast load fluids ordered Cr normal Dr Oden does not want to give her additional contrast so VQ ordered [address] with poor r wave progression. normal axis pt to main ED for monitoring Vital Signs 04/17/19 04/17/19 04/17/19 06:21 06:23 09:00 Temperature 98.5 F 97.7 F Pulse Rate 109 H 103 H Respiratory 18 19 Rate Blood Pressure 150/93 Blood Pressure 141/80 [Right] O2 Sat by Pulse 95 88 95 Oximetry Lab Results 04/17/19 04/17/19 04/17/19 Range/Units 06:39 06:39 06:39 WBC 5.5 (4.5-11.0) K/mm3 RBC 4.78 (3.65-5.03) M/mm3 Hgb 13.8 (10.1-14.3) gm/dl Hct 41.7 (30.3-42.9) % MCV 87 (79-97) fl MCH 29 (28-32) pg MCHC 33 (30-34) % RDW 14.1 (13.2-15.2) % Plt Count 284 (140-440) K/mm3 Lymph % (Auto) 15.0 (13.4-35.0) % [place] % (Auto) 8.8 H (0.0-7.3) % Eos % (Auto) 3.8 (0.0-4.3) % Baso % (Auto) 0.3 (0.0-1.8) % Lymph # 0.8 L (1.2-5.4) K/mm3 [place] # 0.5 (0.0-0.8) K/mm3 Eos # 0.2 (0.0-0.4) K/mm3 Baso # 0.0 (0.0-0.1) K/mm3 Seg Neutrophils % 72.1 H (40.0-70.0) % Seg Neutrophils # 4.0 (1.8-7.7) K/mm3 POC ABG pH (7.35-7.45) POC ABG pCO2 (35-45) POC ABG pO2 (80-105) POC ABG HCO3 (22-26 mml/L) POC ABG Total CO2 (23-27mmol/L) POC ABG O2 Sat POC ABG Base Excess ((-2) - (+3)mmol/L) FiO2 % Sodium 137 (137-145) mmol/L Potassium 3.0 L (3.6-5.0) mmol/L Chloride 91.3 L (98-107) mmol/L Carbon Dioxide 32 H (22-30) mmol/L Anion Gap 17 mmol/L BUN 5 L (7-17) mg/dL Creatinine 0.5 L (0.7-1.2) mg/dL Estimated GFR > 60 ml/min BUN/Creatinine Ratio 10 % Glucose 121 H (65-100) mg/dL Calcium 9.4 (8.4-10.2) mg/dL Total Bilirubin 2.20 H (0.1-1.2) mg/dL AST 343 H (5-40) units/L ALT 226 H (7-56) units/L Alkaline Phosphatase 22 L (35-129) units/L Troponin T (0.00-0.029) ng/mL Total Protein 8.6 H (6.3-8.2) g/dL Albumin 3.5 L (3.9-5) g/dL Albumin/Globulin Ratio 0.7 % Lipase 63 H (13-60) units/L HCG, Qual (Negative) Urine Color (Yellow) Urine Turbidity (Clear) Urine pH (5.0-7.0) Ur Specific [place] (1.003-1.030) Urine Protein (Negative) mg/dL Urine Glucose (UA) (Negative) mg/dL Urine Ketones (Negative) mg/dL Urine Blood (Negative) Urine Nitrite (Negative) Urine Bilirubin (Negative) Urine Urobilinogen (<2.0) mg/dL Ur Leukocyte Esterase (Negative) Urine WBC (Auto) (0.0-6.0) /HPF Urine RBC (Auto) (0.0-6.0) /HPF U Epithel Cells (Auto) (0-13.0) /HPF Urine Bacteria (Auto) (Negative) /HPF Urine Mucus /HPF 04/17/19 04/17/19 04/17/19 Range/Units 06:39 07:17 08:51 WBC (4.5-11.0) K/mm3 RBC (3.65-5.03) M/mm3 Hgb (10.1-14.3) gm/dl Hct (30.3-42.9) % MCV (79-97) fl MCH (28-32) pg MCHC (30-34) % RDW (13.2-15.2) % Plt Count (140-440) K/mm3 Lymph % (Auto) (13.4-35.0) % [place] % (Auto) (0.0-7.3) % Eos % (Auto) (0.0-4.3) % Baso % (Auto) (0.0-1.8) % Lymph # (1.2-5.4) K/mm3 [place] # (0.0-0.8) K/mm3 Eos # (0.0-0.4) K/mm3 Baso # (0.0-0.1) K/mm3 Seg Neutrophils % (40.0-70.0) % Seg Neutrophils # (1.8-7.7) K/mm3 POC ABG pH (7.35-7.45) POC ABG pCO2 (35-45) POC ABG pO2 (80-105) POC ABG HCO3 (22-26 mml/L) POC ABG Total CO2 (23-27mmol/L) POC ABG O2 Sat POC ABG Base Excess ((-2) - (+3)mmol/L) FiO2 % Sodium (137-145) mmol/L Potassium (3.6-5.0) mmol/L Chloride (98-107) mmol/L Carbon Dioxide (22-30) mmol/L Anion Gap mmol/L BUN (7-17) mg/dL Creatinine (0.7-1.2) mg/dL Estimated GFR ml/min BUN/Creatinine Ratio % Glucose (65-100) mg/dL Calcium (8.4-10.2) mg/dL Total Bilirubin (0.1-1.2) mg/dL AST (5-40) units/L ALT (7-56) units/L Alkaline Phosphatase (35-129) units/L Troponin T < 0.010 (0.00-0.029) ng/mL Total Protein (6.3-8.2) g/dL Albumin (3.9-5) g/dL Albumin/Globulin Ratio % Lipase (13-60) units/L HCG, Qual Negative (Negative) Urine Color Yellow (Yellow) Urine Turbidity Clear (Clear) Urine pH 7.0 (5.0-7.0) Ur Specific [place] 1.031 H (1.003-1.030) Urine Protein <15 mg/dl (Negative) mg/dL Urine Glucose (UA) Neg (Negative) mg/dL Urine Ketones Neg (Negative) mg/dL Urine Blood Neg (Negative) Urine Nitrite Neg (Negative) Urine Bilirubin Neg (Negative) Urine Urobilinogen 2.0 (<2.0) mg/dL Ur Leukocyte Esterase Neg (Negative) Urine WBC (Auto) 2.0 (0.0-6.0) /HPF Urine RBC (Auto) 1.0 (0.0-6.0) /HPF U Epithel Cells (Auto) 5.0 (0-13.0) /HPF Urine Bacteria (Auto) 1+ (Negative) /HPF Urine Mucus Few /HPF 04/17/19 Range/Units 09:01 WBC (4.5-11.0) K/mm3 RBC (3.65-5.03) M/mm3 Hgb (10.1-14.3) gm/dl Hct (30.3-42.9) % MCV (79-97) fl MCH (28-32) pg MCHC (30-34) % RDW (13.2-15.2) % Plt Count (140-440) K/mm3 Lymph % (Auto) (13.4-35.0) % [place] % (Auto) (0.0-7.3) % Eos % (Auto) (0.0-4.3) % Baso % (Auto) (0.0-1.8) % Lymph # (1.2-5.4) K/mm3 [place] # (0.0-0.8) K/mm3 Eos # (0.0-0.4) K/mm3 Baso # (0.0-0.1) K/mm3 Seg Neutrophils % (40.0-70.0) % Seg Neutrophils # (1.8-7.7) K/mm3 POC ABG pH 7.504 H (7.35-7.45) POC ABG pCO2 49.7 H (35-45) POC ABG pO2 61 L (80-105) POC ABG HCO3 39.1 (22-26 mml/L) POC ABG Total CO2 41 (23-27mmol/L) POC ABG O2 Sat 93 POC ABG Base Excess 16 ((-2) - (+3)mmol/L) FiO2 21 % Sodium (137-145) mmol/L Potassium (3.6-5.0) mmol/L Chloride (98-107) mmol/L Carbon Dioxide (22-30) mmol/L Anion Gap mmol/L BUN (7-17) mg/dL Creatinine (0.7-1.2) mg/dL Estimated GFR ml/min BUN/Creatinine Ratio % Glucose (65-100) mg/dL Calcium (8.4-10.2) mg/dL Total Bilirubin (0.1-1.2) mg/dL AST (5-40) units/L ALT (7-56) units/L Alkaline Phosphatase (35-129) units/L Troponin T (0.00-0.029) ng/mL Total Protein (6.3-8.2) g/dL Albumin (3.9-5) g/dL Albumin/Globulin Ratio % Lipase (13-60) units/L HCG, Qual (Negative) Urine Color (Yellow) Urine Turbidity (Clear) Urine pH (5.0-7.0) Ur Specific [place] (1.003-1.030) Urine Protein (Negative) mg/dL Urine Glucose (UA) (Negative) mg/dL Urine Ketones (Negative) mg/dL Urine Blood (Negative) Urine Nitrite (Negative) Urine Bilirubin (Negative) Urine Urobilinogen (<2.0) mg/dL Ur Leukocyte Esterase (Negative) Urine WBC (Auto) (0.0-6.0) /HPF Urine RBC (Auto) (0.0-6.0) /HPF U Epithel Cells (Auto) (0-13.0) /HPF Urine Bacteria (Auto) (Negative) /HPF Urine Mucus /HPF 12 lead unchanged from prior Echo in 2019 n LVEF and RV normal function she is obese; post menopausal was given Breo in past but pt can not tell me why- never smoker- no home o2- no hx pe/dvt mom dec heart disease and dad dec CVA CONCERNS ABD- LFT INC WITH Tape TV K [address] SCAN RESP HYPOXIA/HYPERCAPNIA- acute change in ER see 12 lead trop neg see echo 12/30 VQ low prob Staffed with Dr Mendenhall who will dispo - Differential Diagnosis ro choley/pancreatits ED Disposition Clinical Impression: Hypoxic episode Cholelithiasis Qualifiers: Cholelithiasis location: gallbladder Cholecystitis presence: without cholecystitis Biliary obstruction: without biliary obstruction Qualified Code(s): K80.20 - Calculus of gallbladder without cholecystitis without obstruction Disposition: DC- TO HOME OR SELFCARE Is pt being admited?: No Does the pt Need Aspirin: No Condition: Stable Instructions: Biliary Colic (ED), Acute Nausea and Vomiting (ED) Referrals: MARION REGALADO DO [Staff Physician] - 3-5 Days NORMAN KRAMER MD [Staff Physician] - 3-5 Days Time of Disposition: 11:30 <AURE MENDENHALL - Last Filed: 04/17/19 12:59> ED Review of Systems ROS: Stated complaint: GALL BLADDER PAIN Other details as noted in HPI ED Course Vital Signs 04/17/19 04/17/19 04/17/19 06:21 06:23 09:00 Temperature 98.5 F 97.7 F Pulse Rate 109 H 103 H Respiratory 18 19 Rate Blood Pressure 150/93 Blood Pressure 141/80 [Right] O2 Sat by Pulse 95 88 95 Oximetry 04/17/19 04/17/19 04/17/19 09:08 09:16 09:30 Temperature Pulse Rate 106 H 105 H 101 H Respiratory 9 L 25 H 21 Rate Blood Pressure 150/89 Blood Pressure [Right] O2 Sat by Pulse 95 96 Oximetry 04/17/19 04/17/19 04/17/19 09:46 10:00 11:14 Temperature Pulse Rate 103 H 104 H Respiratory 14 12 Rate Blood Pressure 143/79 143/79 150/89 Blood Pressure [Right] O2 Sat by Pulse 96 86 Oximetry 04/17/19 04/17/19 04/17/19 11:15 11:30 11:46 Temperature Pulse Rate 101 H 99 H Respiratory 14 33 H Rate Blood Pressure 153/85 149/87 155/125 Blood Pressure [Right] O2 Sat by Pulse 87 98 97 Oximetry 04/17/19 04/17/19 04/17/19 12:00 12:16 12:33 Temperature Pulse Rate 100 H 102 H 101 H Respiratory 16 19 14 Rate Blood Pressure 155/125 149/82 Blood Pressure 172/116 [Right] O2 Sat by Pulse 97 90 97 Oximetry ED Medical Decision Making - Lab Data Result diagrams: 04/17/19 06:39 04/17/19 06:39 - Radiology Data VENTILATION PERFUSION PULMONARY SCINTIGRAPHY HISTORY: Acute shortness of breath, tachycardia COMPARISON: 04/17/2019 at 0908 hours chest radiograph. TECHNIQUE: Radiopharmaceutical was inhaled. Tc-99m-MAA was then injected. Ventilation and perfusion images were acquired. RADIOPHARMACEUTICAL: 24.0 mCi of Xe-133 inhaled 2.8 mCi of Tc-99m-MAA injected FINDINGS: VENTILATION: No significant air trapping or defect. PERFUSION: No significant segmental or non-segmental defect. Additional Findings: None. IMPRESSION: 1. Low probability for pulmonary embolism. Signer Name: Ricardo Oden Jr, MD Signed: 04/17/2019 11:07 AM Workstation Name: [id number] CT ABDOMEN AND PELVIS WITH CONTRAST HISTORY: Abdominal pain, right upper quadrant pain for one week. COMPARISON: Ultrasound right upper quadrant performed the same day TECHNIQUE: Axial CT images were obtained through the abdomen and pelvis after 10 0 cc of Omnipaque 300 intravenously. Sagittal and coronal reformatted images. All CT scans at this location are performed using CT dose reduction for ALARA by means of automated exposure control. FINDINGS: CT ABDOMEN: Lung Bases: Clear. Liver: No significant abnormality. Biliary: Cholelithiasis is again noted. The gallbladder appears significantly more inflamed on CT than ultrasound. The gallbladder measures 11.9 x 4.2 cm in axial dimensions. Mild gallbladder wall thickening is suggested measuring 4 mm. There is mild fat stranding surrounding the gallbladder but no pericholecystic fluid collection is appreciated. The common bile duct and intrahepatic ducts are unremarkable. Spleen: No significant abnormality. Unenlarged. Pancreas: No significant abnormality. Adrenals: No significant abnormality. Kidneys: Both kidneys are normal size, contour and position. Normal enhancement. There appear to be 2 calyceal stones at the inferior pole of the right kidney measuring 2 mm and 4 mm. No focal renal lesion or hydronephrosis. Lymphatics: No lymphadenopathy. Vasculature: No significant abnormality. Bowel/Peritoneum: No significant abnormality. No free air. No free fluid. Normal appendix. CT PELVIS: : No significant abnormality. Osseous Structures: No significant abnormality. Additional Findings: None IMPRESSION: Cholelithiasis. The gallbladder appears moderately inflamed on CT as outlined above. Correlate for acute cholecystitis. Signer Name: Ricardo Oden Jr, MD Signed: 04/17/2019 8:57 AM Workstation Name: [id number] LIMITED RUQ ABDOMINAL ULTRASOUND INDICATION: Right upper quadrant pain for one week. COMPARISON: No relevant prior imaging study available. FINDINGS: Pancreas: Visualized portions show no significant abnormality. Abdominal Aorta: No significant abnormality. IVC: No significant abnormality. Liver: The liver measures 17.2 cm in length. No significant abnormality. Normal hepatopedal blood flow in the main portal vein. Gallbladder: The gallbladder contains multiple large shadowing gallstones. The gallbladder appears partially contracted with gallbladder wall thickness measuring 3 mm. No pericholecystic fluid.. Bile ducts: No significant abnormality. Common bile duct measures 4.2 mm. Right kidney: No significant abnormality visualized.. Free fluid: None. Additional Findings: None. IMPRESSION: Cholelithiasis. No convincing findings of acute cholecystitis. Signer Name: Ricardo Oden Jr, MD Signed: 04/17/2019 8:17 AM Workstation Name: [id number] Transcribed By: TTR Dictated By: RICARDO ODEN JR, MD Electronically Authenticated By: RICARDO Witt - Medical Decision Making She was evaluated by me in the emergency department. Patient's initially was in some pain and patient likely became hypoxic secondary to being in pain and splinting. Patient also likely had exceeded her limits for her exercise tole myra with walking over to CT. Patient is currently at this time is resting comfortably she states her pain is improved. Patient's walked again here in emergency department but just in her room and she stated that she was no longer having shortness of breath with mild exercise. O2 sat was 97%. Patient does state that she has a kiln hand Dr. Kramer and will follow up regarding her breathing. Patient given surgeon for follow-up as well. Critical care attestation.: If time is entered above; I have spent that time in minutes in the direct care of this critically ill patient, excluding procedure time. ED Disposition Is pt being admited?: No Does the pt Need Aspirin: No
[2019-04-17 07:28] LABS: BUN/Creatinine Ratio 10; Blood Urea Nitrogen 5 mg/dL (7-17); Calcium 9.4 mg/dL (8.4-10.2); Hemolysis Index 9
[2019-04-17] MEDS ORDERED: CEFEPIME/NS 2 GM/100 ML 2 GM/100 ML BAG IV ONE (07:34)
[2019-04-17] MEDS ORDERED: POTASSIUM CHLORIDE 10 MEQ 10 MEQ/100 ML BAG IV ONE (07:35)
--- NOTE | 2019-04-17 08:22 | Ultrasound Report ---
LIMITED RUQ ABDOMINAL ULTRASOUND INDICATION: Right upper quadrant pain for one week. COMPARISON: No relevant prior imaging study available. FINDINGS: Pancreas: Visualized portions show no significant abnormality. Abdominal Aorta: No significant abnormality. IVC: No significant abnormality. Liver: The liver measures 17.2 cm in length. No significant abnormality. Normal hepatopedal blood fl ow in the main portal vein. Gallbladder: The gallbladder contains multiple large shadowing gallstones. The gallbladder appears pa rtially contracted with gallbladder wall thickness measuring 3 mm. No pericholecystic fluid.. Bile ducts: No significant abnormality. Common bile duct measures 4.2 mm. Right kidney: No significant abnormality visualized.. Free fluid: None. Additional Findings: None. IMPRESSION: Cholelithiasis. No convincing findings of acute cholecystitis. Signer Name: Ricardo Oden Jr, MD Signed: 04/17/2019 8:17 AM Workstation Name: [id number]
[2019-04-17 08:39] LABS: Alanine Aminotransferase 226 units/L (7-56); Albumin 3.5 g/dL (3.9-5)
--- NOTE | 2019-04-17 09:01 | Cat Scan Report ---
CT ABDOMEN AND PELVIS WITH CONTRAST HISTORY: Abdominal pain, right upper quadrant pain for one week. COMPARISON: Ultrasound right upper quadrant performed the same day TECHNIQUE: Axial CT images were obtained through the abdomen and pelvis after 100 cc of Omnipaque 300 intravenously. Sagittal and coronal reformatted images. All CT scans at this location are performed using CT dose reduction for ALARA by means of automated exposure control. FINDINGS: CT ABDOMEN: Lung Bases: Clear. Liver: No significant abnormality. Biliary: Cholelithiasis is again noted. The gallbladder appears significantly more inflamed on CT luz marina n ultrasound. The gallbladder measures 11.9 x 4.2 cm in axial dimensions. Mild gallbladder wall thick ening is suggested measuring 4 mm. There is mild fat stranding surrounding the gallbladder but no per icholecystic fluid collection is appreciated. The common bile duct and intrahepatic ducts are unremar kable. Spleen: No significant abnormality. Unenlarged. Pancreas: No significant abnormality. Adrenals: No significant abnormality. Kidneys: Both kidneys are normal size, contour and position. Normal enhancement. There appear to be 2 calyceal stones at the inferior pole of the right kidney measuring 2 mm and 4 mm. No focal renal les ion or hydronephrosis. Lymphatics: No lymphadenopathy. Vasculature: No significant abnormality. Bowel/Peritoneum: No significant abnormality. No free air. No free fluid. Normal appendix. CT PELVIS: : No significant abnormality. Osseous Structures: No significant abnormality. Additional Findings: None IMPRESSION: Cholelithiasis. The gallbladder appears moderately inflamed on CT as outlined above. Correlate for ac [place] cholecystitis. Signer Name: Ricardo Oden Jr, MD Signed: 04/17/2019 8:57 AM Workstation Name: [id number]
[2019-04-17 09:09] LABS: Bacteria,Urine 1+ /HPF (Negative); Bilirubin,Urine NEG (Negative); Blood,Urine NEG (Negative); Color,Urine Yellow (Yellow); Mucus,Urine FEW /HPF; Protein,Urine <15 mg/dL mg/dL (Negative)
--- NOTE | 2019-04-17 09:34 | XRay Report ---
CHEST 1 VIEW INDICATION: Shortness of breath. COMPARISON: 12/22/2018 FINDINGS: Support devices: None. Heart: Within normal limits. Lungs/Pleura: No acute air space or interstitial disease. Additional findings: There is poor inspiration IMPRESSION: Grossly negative expiratory AP chest Signer Name: Ricardo Oden Jr, MD Signed: 04/17/2019 9:30 AM Workstation Name: [id number]
--- NOTE | 2019-04-17 11:12 | Nuclear Medicine Report ---
VENTILATION PERFUSION PULMONARY SCINTIGRAPHY HISTORY: Acute shortness of breath, tachycardia COMPARISON: 04/17/2019 at 0908 hours chest radiograph. TECHNIQUE: Radiopharmaceutical was inhaled. Tc-99m-MAA was then injected. Ventilation and perfusion images were acquired. RADIOPHARMACEUTICAL: 24.0 mCi of Xe-133 inhaled 2.8 mCi of Tc-99m-MAA injected FINDINGS: VENTILATION: No significant air trapping or defect. PERFUSION: No significant segmental or non-segmental defect. Additional Findings: None. IMPRESSION: 1. Low probability for pulmonary embolism. Signer Name: Ricardo Oden Jr, MD Signed: 04/17/2019 11:07 AM Workstation Name: [id number]
[2019-04-17] MEDS ORDERED: SODIUM CHLORIDE 0.9% 250ML 250 ML IV ONE (11:27)
[2019-04-17 13:32] VITALS: BP 211/143
== END 2019-04-17 13:31 | disposition home or self-care (01) ==
LOC: ED 06:20
DX: K80.20 Calculus of gallbladder without cholecystitis without obstruction (principal); R09.02 Hypoxemia; I10 Essential (primary) hypertension
CPT/HCPCS: 36415; 71045; 74177; 76705; 78582; 80053; 81001; 82803; 83690; 84484; 84703; 85025; 93005; 93010; 94760; 96361; 96365; 96375; 99285; A9540; A9558; J0692; J1885; J2405; J3480; J7030; J7050; Q9967

== ENCOUNTER 2019-04-28 10:01 | Outpatient (CLI) | payer OTHER ==
[2019-04-28 10:49] LABS: Alanine Aminotransferase 44 units/L (7-56); Albumin 3.6 g/dL (3.9-5); BUN/Creatinine Ratio 13; Bilirubin,Direct 0.4 mg/dL (0-0.2); Blood Urea Nitrogen 8 mg/dL (7-17); Calcium 9.5 mg/dL (8.4-10.2); Hemolysis Index 5
== END 2019-04-28 10:02 | disposition home or self-care (01) ==
LOC: LAB 10:01
PROVIDERS: ATTEND Surgery
DX: K80.20 Calculus of gallbladder without cholecystitis without obstruction (principal); Z88.8 Allergy status to other drugs, medicaments and biological substances
CPT/HCPCS: 36415; 80053; 82248

== ENCOUNTER 2020-03-10 09:46 | Emergency (ER) | payer OTHER ==
[2020-03-10] MEDS ORDERED: ONDANSETRON 4 MG/2 ML INJ IV ONE (10:28)
[2020-03-10] MEDS ORDERED: SODIUM CHLORIDE 0.9% 1000 ML 1,000 ML IV ONE (10:28)
[2020-03-10] MEDS ORDERED: MORPHINE 4 MG/1 ML INJ IV ONE (10:28)
[2020-03-10 10:41] LABS: Alanine Aminotransferase 19 units/L (7-56); Albumin 3.8 g/dL (3.9-5); Blood Urea Nitrogen 8 mg/dL (7-17); Calcium 9.4 mg/dL (8.4-10.2); Hemolysis Index 1
--- NOTE | 2020-03-10 10:46 | Emergency Department Report ---
ED Abdominal Pain HPI - General Chief Complaint: Abdominal Pain Stated Complaint: SIDE PAIN/NAUSEA Time Seen by Provider: 03/10/20 10:17 Source: patient Mode of arrival: Ambulatory Limitations: No Limitations - History of Present Illness Initial Comments: Patient is a 54-year-old female presents emergency room with complaints of right upper quadrant pain that began this morning. She has associated nausea vomiting. She denies any diarrhea, fever, urinary symptoms, hematochezia, hematemesis, melena. She states that she is having normal bowel movements. Patient states that she had the same symptoms approximately a year ago and reports she was diagnosed with gallstones. She states that she did see a general surgeon as an outpatient but due to monetary issues she was unable to have surgery. She has an allergy to Vicodin. she also has a hx of HTN, Obesity Hypoventilation Syndrome. Severity scale (0 -10): 10 - Related Data Home Medications Medication Instructions Recorded Confirmed Last Taken Metoprolol [Lopressor TAB] 50 mg PO BID 12/22/18 12/22/18 Unknown hydroCHLOROthiazide [HCTZ] 25 mg PO DAILY 12/22/18 12/22/18 Unknown Previous Rx's Medication Instructions Recorded Last Taken Type Albuterol Mdi (or & Nicu Only) 2 puff IH QID PRN #1 inhalation 12/26/18 Unknown Rx [ProAir HFA Inhaler] Dicyclomine [Bentyl] 20 mg PO QID #10 tablet 04/17/19 Unknown Rx Ondansetron [Zofran Odt] 4 mg PO Q8HR #10 tab.rapdis 04/17/19 Unknown Rx traMADoL [Ultram] 50 mg PO Q6HR PRN #12 tablet 04/17/19 Unknown Rx Ondansetron [Zofran Odt] 4 mg PO Q8HR PRN #12 tab.rapdis 03/10/20 Unknown Rx traMADoL [Ultram] 50 mg PO Q6HR PRN #10 tablet 03/10/20 Unknown Rx Allergies Allergy/AdvReac Type Severity Reaction Status Date / Time acetaminophen [From Vicodin] AdvReac Nausea Verified 12/22/18 18:31 hydrocodone [From Vicodin] AdvReac Nausea Verified 12/22/18 18:31 ED Review of Systems ROS: Stated complaint: SIDE PAIN/NAUSEA Other details as noted in HPI Comment: All other systems reviewed and negative ED Past Medical Hx - Past Medical History Previous Medical History?: Yes Hx Hypertension: Yes Additional medical history: gallbladder, ARRON and uses a CPAP - Surgical History Past Surgical History?: Yes Additional Surgical History: Tubaligation - Social History Smoking Status: Never Smoker Substance Use Type: Alcohol - Medications Home Medications: Home Medications Medication Instructions Recorded Confirmed Last Taken Type Metoprolol [Lopressor TAB] 50 mg PO BID 12/22/18 12/22/18 Unknown History hydroCHLOROthiazide [HCTZ] 25 mg PO DAILY 12/22/18 12/22/18 Unknown History Albuterol Mdi (or & Nicu Only) 2 puff IH QID PRN #1 inhalation 12/26/18 Unknown Rx [ProAir HFA Inhaler] Dicyclomine [Bentyl] 20 mg PO QID #10 tablet 04/17/19 Unknown Rx Ondansetron [Zofran Odt] 4 mg PO Q8HR #10 tab.rapdis 04/17/19 Unknown Rx traMADoL [Ultram] 50 mg PO Q6HR PRN #12 tablet 04/17/19 Unknown Rx Ondansetron [Zofran Odt] 4 mg PO Q8HR PRN #12 tab.rapdis 03/10/20 Unknown Rx traMADoL [Ultram] 50 mg PO Q6HR PRN #10 tablet 03/10/20 Unknown Rx ED Physical Exam - General Limitations: No Limitations General appearance: alert, in no apparent distress - Head Head exam: Present: atraumatic, normocephalic - Eye Eye exam: Present: normal appearance - ENT ENT exam: Present: mucous membranes moist - Respiratory Respiratory exam: Present: normal lung sounds bilaterally. Absent: respiratory distress, wheezes, rales, rhonchi, stridor, chest wall tenderness, accessory muscle use, decreased breath sounds, prolonged expiratory - Cardiovascular Cardiovascular Exam: Present: regular rate, normal rhythm, normal heart sounds. Absent: systolic murmur, diastolic murmur, rubs, gallop - GI/Abdominal GI/Abdominal exam: Present: soft, tenderness (RUQ), normal bowel sounds, other (protuberant abdomen). Absent: guarding, rebound, rigid - Neurological Exam Neurological exam: Present: alert, oriented X3 - Psychiatric Psychiatric exam: Present: normal affect, normal mood - Skin Skin exam: Present: warm, dry, intact ED Course Vital Signs 03/10/20 03/10/20 03/10/20 09:54 10:41 14:08 Temperature 97.7 F Pulse Rate 83 81 Respiratory 18 18 18 Rate Blood Pressure 150/96 Blood Pressure 146/90 [Right] O2 Sat by Pulse 96 97 Oximetry ED Medical Decision Making - Lab Data Result diagrams: 03/10/20 10:07 03/10/20 10:07 Lab Results 03/10/20 03/10/20 03/10/20 Range/Units 10:07 10:07 10:07 WBC 4.8 (4.5-11.0) K/mm3 RBC 4.65 (3.65-5.03) M/mm3 Hgb 14.2 (10.1-14.3) gm/dl Hct 42.2 (30.3-42.9) % MCV 91 (79-97) fl MCH 31 (28-32) pg MCHC 34 (30-34) % RDW 13.7 (13.2-15.2) % Plt Count 270 (140-440) K/mm3 Lymph % (Auto) 11.7 L (13.4-35.0) % [place] % (Auto) 6.0 (0.0-7.3) % Eos % (Auto) 0.1 (0.0-4.3) % Baso % (Auto) 0.3 (0.0-1.8) % Lymph # (Auto) 0.6 L (1.2-5.4) K/mm3 [place] # (Auto) 0.3 (0.0-0.8) K/mm3 Eos # (Auto) 0.0 (0.0-0.4) K/mm3 Baso # (Auto) 0.0 (0.0-0.1) K/mm3 Seg Neutrophils % 81.9 H (40.0-70.0) % Seg Neutrophils # 3.9 (1.8-7.7) K/mm3 Sodium 139 (137-145) mmol/L Potassium 3.5 L (3.6-5.0) mmol/L Chloride 98.9 (98-107) mmol/L Carbon Dioxide 29 (22-30) mmol/L Anion Gap 15 mmol/L BUN 8 (7-17) mg/dL Creatinine 0.6 (0.6-1.2) mg/dL Estimated GFR > 60 ml/min BUN/Creatinine Ratio 13 % Glucose 153 H (65-100) mg/dL Calcium 9.4 (8.4-10.2) mg/dL Total Bilirubin 0.80 (0.1-1.2) mg/dL AST 25 (5-40) units/L ALT 19 (7-56) units/L Alkaline Phosphatase 82 (35-129) units/L Total Protein 8.2 (6.3-8.2) g/dL Albumin 3.8 L (3.9-5) g/dL Albumin/Globulin Ratio 0.9 % Lipase 35 (13-60) units/L Urine Color Yellow (Yellow) Urine Turbidity Clear (Clear) Urine pH 7.0 (5.0-7.0) Ur Specific Hitchcock 1.015 (1.003-1.030) Urine Protein <15 mg/dl (Negative) mg/dL Urine Glucose (UA) Neg (Negative) mg/dL Urine Ketones Neg (Negative) mg/dL Urine Blood Neg (Negative) Urine Nitrite Neg (Negative) Urine Bilirubin Neg (Negative) Urine Urobilinogen < 2.0 (<2.0) mg/dL Ur Leukocyte Esterase Neg (Negative) Urine WBC (Auto) < 1.0 (0.0-6.0) /HPF Urine RBC (Auto) 1.0 (0.0-6.0) /HPF U Epithel Cells (Auto) 4.0 (0-13.0) /HPF Urine Bacteria (Auto) 1+ (Negative) /HPF Urine Mucus Few /HPF - Radiology Data Radiology results: report reviewed ULTRASOUND ABDOMEN, LIMITED (RIGHT UPPER QUADRANT) INDICATION / CLINICAL INFORMATION: RUQ pain, n/v. COMPARISON: Prior ultrasound and CT of the abdomen both dated 04/17/2019. FINDINGS: PANCREAS: Visualized portion shows no significant abnormality. LIVER: Diffuse hepatic steatosis. The liver measures within upper limits of normal at 15.7 cm. No evidence of focal hepatic lesion. GALLBLADDER: Multiple large calcified gallstones are again noted filling the gallbladder lumen, similar to prior exam. The gallbladder wall is within normal limits for thickn ess. No evidence of pericholecystic fluid BILE DUCTS: No significant abnormality. Common bile duct measures 3 mm. FREE FLUID: None. ADDITIONAL FINDINGS: None. IMPRESSION: 1. Cholelithiasis with abundant stone burden similar to prior exam. 2. No evidence of acute cholecystitis. 3. Diffuse hepatic steatosis without evidence of focal hepatic lesion. Signer Name: Juan Pablo Kern MD Signed: 03/10/2020 12:41 PM Workstation Name: [id number] Transcribed By: Dictated By: JUAN PABLO KERN Electronically Authenticated By: JUAN PABLO KERN Signed Date/Time: 03/10/20 1241 DD/ 1237 TD/TT: - Medical Decision Making Patient is a 54-year-old female presents emergency room with complaints of right upper quadrant pain that began this morning. She has associated nausea vomiting. She denies any diarrhea, fever, urinary symptoms, hematochezia, hematemesis, melena. She states that she is having normal bowel movements. Patient states that she had the same symptoms approximately a year ago and reports she was diagnosed with gallstones. She states that she did see a general surgeon as an outpatient but due to monetary issues she was unable to have surgery. She has an allergy to Vicodin. she also has a hx of HTN, Obesity Hypoventilation Syndrome. VSS. on exam: pt has RUQ ttp, no guarding, no rebound, no rigidity, normal bowel sounds, no peritoneal signs, protuberant abdomen. labs are normal. no leukocytosis. UA is WNL. US RUQ: 1. Cholelithiasis with abundant stone burden similar to prior exam. 2. No evidence of acute cholecystitis. 3. Diffuse hepatic steatosis without evidence of focal hepatic lesion. Patient given IV fluids and antiemetics, pain medication and symptoms improved and she was feeling better and ready to go home. Patient was p.o. challenge while in the emergency room and was able to tolerate p.o. intake without difficulty. She had no further episodes of vomiting and her pain had resolved. Symptoms most likely related to cholelithiasis. Advised patient that she would need to follow-up with a general surgeon. Discussed strict return precautions with patient. Patient given prescription for tramadol and Zofran. Advised patient Please take medication as prescribed. Please increase your water intake. Avoid anything greasy or fatty. Follow-up with your primary care doctor. Follow-up with a general surgeon. Return to emergency room immediately for any new or worsening symptoms including but not limited to worsening abdominal pain, fever, unable to tolerate by mouth intake, etc. - Differential Diagnosis cholecystitis, cholelithiasis, UTI, SBO, pancreatitis, gastritis, PUD Critical care attestation.: If time is entered above; I have spent that time in minutes in the direct care of this critically ill patient, excluding procedure time. ED Disposition Clinical Impression: Abdominal pain Qualifiers: Abdominal location: right upper quadrant Qualified Code(s): R10.11 - Right upper quadrant pain Nausea & vomiting Qualifiers: Vomiting type: unspecified Vomiting Intractability: non-intractable Qualified Code(s): R11.2 - Nausea with vomiting, unspecified Cholelithiasis Qualifiers: Cholelithiasis location: gallbladder Cholecystitis presence: without chol ecystitis Biliary obstruction: without biliary obstruction Qualified Code(s): K80.20 - Calculus of gallbladder without cholecystitis without obstruction Disposition: TO HOME OR SELFCARE Is pt being admited?: No Does the pt Need Aspirin: No Condition: Stable Instructions: Cholelithiasis (ED), Abdominal Pain (ED) Additional Instructions: Please take medication as prescribed. Please increase your water intake. Avoid anything greasy or fatty. Follow-up with your primary care doctor. Follow-up with a general surgeon. Return to emergency room immediately for any new or worsening symptoms including but not limited to worsening abdominal pain, fever, unable to tolerate by mouth intake, etc. Prescriptions: traMADoL [Ultram] 50 mg PO Q6HR PRN #10 tablet PRN Reason: Pain , Severe (7-10) Ondansetron [Zofran Odt] 4 mg PO Q8HR PRN #12 tab.rapdis PRN Reason: Nausea And Vomiting Referrals: [facility] [Other] - 2-3 Days MARION REGALADO DO [Staff Physician] - 2-3 Days Time of Disposition: 13:48 Print Language: MALTESE
[2020-03-10 10:49] LABS: BUN/Creatinine Ratio 13; Basophils % (Auto) 0.3 % (0.0-1.8); Eosinophils % (Auto) 0.1 % (0.0-4.3); Hematocrit 42.2 % (30.3-42.9); Hemoglobin 14.2 gm/dl (10.1-14.3); Lymphocytes # (Auto) 0.6 K/mm3 (1.2-5.4); Lymphocytes % (Auto) 11.7 % (13.4-35.0); Mean Corpuscular HGB Conc 34 % (30-34); Mean Corpuscular Volume 91 fl (79-97); Monocytes # (Auto) 0.3 K/mm3 (0.0-0.8); Platelet Count 270 K/mm3 (140-440); Red Blood Count 4.65 M/mm3 (3.65-5.03); Red Cell Distribution Width 13.7 % (13.2-15.2)
[2020-03-10] MEDS ORDERED: HYDROmorphone 1 MG/1 ML INJ IV ONE (12:14)
[2020-03-10 12:28] LABS: Bacteria,Urine 1+ /HPF (Negative); Bilirubin,Urine NEG (Negative); Blood,Urine NEG (Negative); Color,Urine Yellow (Yellow); Mucus,Urine FEW /HPF; Protein,Urine <15 mg/dL mg/dL (Negative); Urobilinogen,Urine < 2.0 mg/dL (<2.0); WBC,Urine < 1.0 /HPF (0.0-6.0)
--- NOTE | 2020-03-10 12:46 | Ultrasound Report ---
ULTRASOUND ABDOMEN, LIMITED (RIGHT UPPER QUADRANT) INDICATION / CLINICAL INFORMATION: RUQ pain, n/v. COMPARISON: Prior ultrasound and CT of the abdomen both dated 04/17/2019. FINDINGS: PANCREAS: Visualized portion shows no significant abnormality. LIVER: Diffuse hepatic steatosis. The liver measures within upper limits of normal at 15.7 cm. No skyler dence of focal hepatic lesion. GALLBLADDER: Multiple large calcified gallstones are again noted filling the gallbladder lumen, simil ar to prior exam. The gallbladder wall is within normal limits for thickness. No evidence of perichol ecystic fluid BILE DUCTS: No significant abnormality. Common bile duct measures 3 mm. FREE FLUID: None. ADDITIONAL FINDINGS: None. IMPRESSION: 1. Cholelithiasis with abundant stone burden similar to prior exam. 2. No evidence of acute cholecystitis. 3. Diffuse hepatic steatosis without evidence of focal hepatic lesion. Signer Name: Juan Pablo Trivedi MD Signed: 03/10/2020 12:41 PM Workstation Name: [id number]
[2020-03-10 14:09] VITALS: BP 146/90
== END 2020-03-10 14:08 | disposition home or self-care (01) ==
LOC: ED 09:46
DX: K80.20 Calculus of gallbladder without cholecystitis without obstruction (principal); R10.11 Right upper quadrant pain; R11.2 Nausea with vomiting, unspecified; I10 Essential (primary) hypertension; Z98.51 Tubal ligation status; Z79.899 Other long term (current) drug therapy; Z88.8 Allergy status to other drugs, medicaments and biological substances
CPT/HCPCS: 36415; 76705; 80053; 81001; 83690; 85025; 96361; 96374; 96375; 99283; 99284; J1170; J2270; J2405; J7030; 80048; J1885

== ENCOUNTER 2020-03-10 20:36 | Emergency (ER) | payer OTHER ==
[2020-03-11] MEDS ORDERED: SODIUM CHLORIDE 0.9% 1000 ML 1,000 ML IV ONE (02:27)
[2020-03-11] MEDS ORDERED: KETOROLAC 30 MG/1 ML INJ IV ONE (02:27)
--- NOTE | 2020-03-11 02:56 | Emergency Department Report ---
ED General Adult HPI - General Chief complaint: Abdominal Pain Stated complaint: RETURN VISIT/EMESIS/ABD PAIN Time Seen by Provider: 03/11/20 02:03 Source: patient Mode of arrival: Ambulatory Limitations: No Limitations - History of Present Illness Initial comments: 54-year-old -[place] female patient presents with complaints of continued right upper abdominal pain and vomiting since being discharged this morning from this ED. Patient has history of gallstones and her findings in the ED today were consistent with cholelithiasis without cholecystitis. Patient states she was tolerating fluids p.o. prior to discharge and her pain was controlled. She reports that when she got home and began taking the pain and nausea medication, she has not been able to keep any food or fluids down. She reports 5 episodes of vomiting and denies any hematemesis/coffee-ground emesis, fever/chills/sweats, or diarrhea. She rates her current pain as a 8/10 in severity. Patient states she she was diagnosed with cholelithiasis 1 year ago and follow-up with GI who informed her that she needed to have her gallbladder removed. 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 - Related Data Home Medications Medication Instructions Recorded Confirmed Last Taken Metoprolol [Lopressor TAB] 50 mg PO BID 12/22/18 12/22/18 Unknown hydroCHLOROthiazide [HCTZ] 25 mg PO DAILY 12/22/18 12/22/18 Unknown Previous Rx's Medication Instructions Recorded Last Taken Type Albuterol Mdi (or & Nicu Only) 2 puff IH QID PRN #1 inhalation 12/26/18 Unknown Rx [ProAir HFA Inhaler] Dicyclomine [Bentyl] 20 mg PO QID #10 tablet 04/17/19 Unknown Rx Ondansetron [Zofran Odt] 4 mg PO Q8HR #10 tab.rapdis 04/17/19 Unknown Rx traMADoL [Ultram] 50 mg PO Q6HR PRN #12 tablet 04/17/19 Unknown Rx Ondansetron [Zofran Odt] 4 mg PO Q8HR PRN #12 tab.rapdis 03/10/20 Unknown Rx traMADoL [Ultram] 50 mg PO Q6HR PRN #10 tablet 03/10/20 Unknown Rx Dicyclomine [Bentyl] 20 mg PO QID PRN #30 tablet 03/11/20 Unknown Rx Metoclopramide [Reglan] 10 mg PO TID PRN #20 tab 03/11/20 Unknown Rx diphenhydrAMINE [Benadryl CAP] 25 mg PO TID PRN #20 capsule 03/11/20 Unknown Rx Allergies Allergy/AdvReac Type Severity Reaction Status Date / Time hydrocodone [From Vicodin] AdvReac Nausea Verified 12/22/18 18:31 ED Review of Systems ROS: Stated complaint: RETURN VISIT/EMESIS/ABD PAIN Other details as noted in HPI Constitutional: denies: chills, diaphoresis, fever, malaise, weakness Respiratory: denies: cough, shortness of breath Cardiovascular: denies: chest pain Gastrointestinal: abdominal pain, nausea, vomiting. denies: diarrhea, constipation, hematemesis, melena Genitourinary: denies: urgency, dysuria Musculoskeletal: denies: back pain Skin: denies: rash, change in color Neurological: denies: headache ED Past Medical Hx - Past Medical History Previous Medical History?: Yes Hx Hypertension: Yes Additional medical history: gallbladder, ARRON and uses a CPAP - Surgical History Past Surgical History?: Yes Additional Surgical History: Tubaligation - Social History Smoking Status: Never Smoker Substance Use Type: None - Medications Home Medications: Home Medications Medication Instructions Recorded Confirmed Last Taken Type Metoprolol [Lopressor TAB] 50 mg PO BID 12/22/18 12/22/18 Unknown History hydroCHLOROthiazide [HCTZ] 25 mg PO DAILY 12/22/18 12/22/18 Unknown History Albuterol Mdi (or & Nicu Only) 2 puff IH QID PRN #1 inhalation 12/26/18 Unknown Rx [ProAir HFA Inhaler] Dicyclomine [Bentyl] 20 mg PO QID #10 tablet 04/17/19 Unknown Rx Ondansetron [Zofran Odt] 4 mg PO Q8HR #10 tab.rapdis 04/17/19 Unknown Rx traMADoL [Ultram] 50 mg PO Q6HR PRN #12 tablet 04/17/19 Unknown Rx Ondansetron [Zofran Odt] 4 mg PO Q8HR PRN #12 tab.rapdis 03/10/20 Unknown Rx traMADoL [Ultram] 50 mg PO Q6HR PRN #10 tablet 03/10/20 Unknown Rx Dicyclomine [Bentyl] 20 mg PO QID PRN #30 tablet 03/11/20 Unknown Rx Metoclopramide [Reglan] 10 mg PO TID PRN #20 tab 03/11/20 Unknown Rx diphenhydrAMINE [Benadryl CAP] 25 mg PO TID PRN #20 capsule 03/11/20 Unknown Rx ED Physical Exam - General Limitations: No Limitations General appearance: alert, in no apparent distress, obese - Head Head exam: Present: atraumatic, normocephalic - Eye Eye exam: Absent: scleral icterus - Neck Neck exam: Present: normal inspection - Respiratory Respiratory exam: Present: normal lung sounds bilaterally. Absent: respiratory distress - Cardiovascular Cardiovascular Exam: Present: regular rate, normal rhythm. Absent: systolic murmur, diastolic murmur, rubs, gallop - GI/Abdominal GI/Abdominal exam: Present: soft, tenderness (Right upper quadrant). Absent: guarding, rebound, rigid - Extremities Exam Extremities exam: Present: full ROM - Back Exam Back exam: Present: normal inspection. Absent: CVA tenderness (R), CVA tenderness (L) - Neurological Exam Neurological exam: Present: alert, oriented X3, normal gait - Psychiatric Psychiatric exam: Present: normal affect, normal mood - Skin Skin exam: Present: warm, dry, intact, normal color. Absent: rash, cyanosis, diaphoretic, ecchymosis ED Course Vital Signs 03/10/20 03/11/20 20:48 03:06 Temperature 99.1 F Pulse Rate 97 H Respiratory 18 16 Rate Blood Pressure 161/86 O2 Sat by Pulse 96 Oximetry ED Medical Decision Making - Lab Data Result diagrams: 03/11/20 02:40 Lab Results 03/11/20 Range/Units 02:40 Sodium 134 L (137-145) mmol/L Potassium 3.4 L (3.6-5.0) mmol/L Chloride 94.4 L (98-107) mmol/L Carbon Dioxide 27 (22-30) mmol/L Anion Gap 16 mmol/L BUN 6 L (7-17) mg/dL Creatinine 0.5 L (0.6-1.2) mg/dL Estimated GFR > 60 ml/min BUN/Creatinine Ratio 12 % Glucose 131 H (65-100) mg/dL Calcium 9.0 (8.4-10.2) mg/dL - Medical Decision Making 54-year-old -[place] female patient presents with complaints of continued right upper abdominal pain and vomiting since being discharged this morning from this ED. Patient has history of gallstones and her findings in the ED today were consistent with cholelithiasis without cholecystitis. Patient states she was tolerating fluids p.o. prior to discharge and her pain was co ntrolled. She reports that when she got home and began taking the pain and nausea medication, she has not been able to keep any food or fluids down. She reports 5 episodes of vomiting and denies any hematemesis/coffee-ground emesis, fever/chills/sweats, or diarrhea. She rates her current pain as a 8/10 in severity. Patient states she she was diagnosed with cholelithiasis 1 year ago and follow-up with GI who informed her that she needed to have her gallbladder removed. 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 CBC, CMP, lipase, and UA were normal when patient was discharged from the ED earlier today. BMP repeated to rule out electrolyte abnormalities and severe dehydration given continued vomiting. Potassium 3.4, anion gap = 16. Patient given 1 L saline bolus and oral potassium. Toradol and Zofran given. She is tolerating p.o. fluids. Prescription for Bentyl, Reglan, and Benadryl given. Vitals remain normal. Recommend patient continue with instructions given earlier today and follow-up with GI for further assessment and treatment. Strict return precautions were discussed in detail with patient who verbalizes understanding. Critical care attestation.: If time is entered above; I have spent that time in minutes in the direct care of this critically ill patient, excluding procedure time. ED Disposition Clinical Impression: Biliary colic Nausea and vomiting Qualifiers: Vomiting type: unspecified Vomiting Intractability: non-intractable Qualified Code(s): R11.2 - Nausea with vomiting, unspecified Disposition: DC-01 TO HOME OR SELFCARE Is pt being admited?: No Condition: Stable Instructions: Biliary Colic (ED) Additional Instructions: Please follow-up with the jointer machine as recommended earlier today. Prescriptions: diphenhydrAMINE [Benadryl CAP] 25 mg PO TID PRN #20 capsule PRN Reason: Nausea Dicyclomine [Bentyl] 20 mg PO QID PRN #30 tablet PRN Reason: abdominal pain Metoclopramide [Reglan] 10 mg PO TID PRN #20 tab PRN Reason: Nausea
[2020-03-11 03:06] LABS: Blood Urea Nitrogen 6 mg/dL (7-17); Hemolysis Index 24
[2020-03-11 03:11] LABS: BUN/Creatinine Ratio 12
[2020-03-11] MEDS ORDERED: POTASSIUM CHLORIDE ER 20 MEQ TAB PO ONE (03:32)
[2020-03-11 04:29] VITALS: BP 134/66
== END 2020-03-11 04:29 | disposition home or self-care (01) ==
LOC: ED 20:36
DX: R10.84 Generalized abdominal pain (principal); R11.2 Nausea with vomiting, unspecified; I10 Essential (primary) hypertension; Z98.51 Tubal ligation status; Z79.899 Other long term (current) drug therapy; Z88.8 Allergy status to other drugs, medicaments and biological substances
CPT/HCPCS: 36415; 80048; 96361; 96374; 99283; J1885; J7030